=== PATIENT | male | born 1950 | race Caucasian/White ===

== ENCOUNTER → 2017-11-17 | Outpatient (CLI) | payer OTHER ==
[~2017-11-17] MED LIST: ASPIRIN325 PO; BACTRIM DS TAB1 EACH PO; CARVEDILOL25 MG PO; CEFAZOLIN2 GM/1001 IV; CLONIDINE HCL0.3 M3 PO; CLONIDINE0.1 PO; COLACE 100 MG100 MG PO; COZAAR 50 MG TA50 M2 PO; COZAAR100 MG PO; DOXYCYCLINE 10100 MG PO; EPOGEN2000 UNIT/ IJ; EXFORGE HCT 101 EAC2 PO; FLAGYL500 MG PO; FLOMAX0.4 MG PO; GABAPENTIN 100100 MG PO; GLIPIZIDE ER5 MG PO; HUMALOG100 UNIT/1 SUBQ; HUMULIN R100 UNIT/M SUBQ; HYDROCODONE-AP1 EAC6 PO; KEFLEX250 MG PO; KEFLEX500 M1 PO; LANTUS SC; LASIX 40 MG TAB40 M2 PO; LEVEMIR SUBQ; LIPITOR10 MG PO; NEPHRO-VITE RX1 TA1 PO; NEURONTIN 300300 M1 PO; NOVOLIN N100 UNIT/3 SUBQ; NOVOLOG100 UNIT/1 SUBQ; PHOSLO667 MG PO; PLAVIX 75 MG TA75 M1 PO; PROZAC10 MG PO; RENAL CAPS SOFTG1 MG PO; TRAMADOL 50 MG50 MG PO; VANCO1GM HEMODIALYS
== END ==
LOC: M.WC 01:47
DX: T87.89 Other complications of amputation stump (principal); I70.234 Atherosclerosis of native arteries of right leg with ulceration of heel and midfoot; E11.621 Type 2 diabetes mellitus with foot ulcer; L97.411 Non-pressure chronic ulcer of right heel and midfoot limited to breakdown of skin; E11.22 Type 2 diabetes mellitus with diabetic chronic kidney disease; N18.6 End stage renal disease; Z99.2 Dependence on renal dialysis; I50.9 Heart failure, unspecified; Z89.512 Acquired absence of left leg below knee; Z87.891 Personal history of nicotine dependence; Y83.5 Amputation of limb(s) as the cause of abnormal reaction of the patient, or of later complication, without mention of misadventure at the time of the procedure

== ENCOUNTER → 2017-11-24 | Outpatient (CLI) | payer OTHER | LOC: M.WC 02:39 | DX: T87.89 Other complications of amputation stump (principal); E11.621 Type 2 diabetes mellitus with foot ulcer; I70.234 Atherosclerosis of native arteries of right leg with ulceration of heel and midfoot; L97.411 Non-pressure chronic ulcer of right heel and midfoot limited to breakdown of skin; E11.22 Type 2 diabetes mellitus with diabetic chronic kidney disease; N18.6 End stage renal disease; Z99.2 Dependence on renal dialysis; I50.9 Heart failure, unspecified; Z87.891 Personal history of nicotine dependence; Y83.5 Amputation of limb(s) as the cause of abnormal reaction of the patient, or of later complication, without mention of misadventure at the time of the procedure ==

== ENCOUNTER → 2017-12-01 | Outpatient (CLI) | payer OTHER | LOC: M.WC 01:22 | DX: T87.89 Other complications of amputation stump (principal); I70.234 Atherosclerosis of native arteries of right leg with ulceration of heel and midfoot; E11.621 Type 2 diabetes mellitus with foot ulcer; L97.411 Non-pressure chronic ulcer of right heel and midfoot limited to breakdown of skin; E11.22 Type 2 diabetes mellitus with diabetic chronic kidney disease; N18.6 End stage renal disease; Z99.2 Dependence on renal dialysis; I50.9 Heart failure, unspecified; Z87.891 Personal history of nicotine dependence; Y83.5 Amputation of limb(s) as the cause of abnormal reaction of the patient, or of later complication, without mention of misadventure at the time of the procedure ==

== ENCOUNTER → 2017-12-08 | Outpatient (CLI) | payer OTHER | LOC: M.WC 01:13 | DX: T87.89 Other complications of amputation stump (principal); E11.621 Type 2 diabetes mellitus with foot ulcer; L97.411 Non-pressure chronic ulcer of right heel and midfoot limited to breakdown of skin; I50.9 Heart failure, unspecified; Z87.891 Personal history of nicotine dependence; Y83.5 Amputation of limb(s) as the cause of abnormal reaction of the patient, or of later complication, without mention of misadventure at the time of the procedure ==

== ENCOUNTER → 2017-12-15 | Outpatient (CLI) | payer OTHER | LOC: M.WC 01:22 | DX: T87.89 Other complications of amputation stump (principal); E11.621 Type 2 diabetes mellitus with foot ulcer; I70.234 Atherosclerosis of native arteries of right leg with ulceration of heel and midfoot; L97.411 Non-pressure chronic ulcer of right heel and midfoot limited to breakdown of skin; E11.22 Type 2 diabetes mellitus with diabetic chronic kidney disease; N18.6 End stage renal disease; I50.9 Heart failure, unspecified; Z99.2 Dependence on renal dialysis; Z89.512 Acquired absence of left leg below knee; Z87.891 Personal history of nicotine dependence; Y83.5 Amputation of limb(s) as the cause of abnormal reaction of the patient, or of later complication, without mention of misadventure at the time of the procedure ==

== ENCOUNTER → 2017-12-24 | Outpatient (CLI) | payer OTHER | LOC: M.WC 01:30 | DX: T87.89 Other complications of amputation stump (principal); I70.234 Atherosclerosis of native arteries of right leg with ulceration of heel and midfoot; E11.621 Type 2 diabetes mellitus with foot ulcer; L97.411 Non-pressure chronic ulcer of right heel and midfoot limited to breakdown of skin; E11.22 Type 2 diabetes mellitus with diabetic chronic kidney disease; N18.6 End stage renal disease; Z99.2 Dependence on renal dialysis; Z87.891 Personal history of nicotine dependence; Y83.5 Amputation of limb(s) as the cause of abnormal reaction of the patient, or of later complication, without mention of misadventure at the time of the procedure ==

== ENCOUNTER → 2017-12-29 | Outpatient (CLI) | payer OTHER | LOC: M.WC 12-22 08:30 | DX: T87.89 Other complications of amputation stump (principal); E11.621 Type 2 diabetes mellitus with foot ulcer; L97.411 Non-pressure chronic ulcer of right heel and midfoot limited to breakdown of skin; I70.234 Atherosclerosis of native arteries of right leg with ulceration of heel and midfoot; I50.9 Heart failure, unspecified; E11.22 Type 2 diabetes mellitus with diabetic chronic kidney disease; N18.6 End stage renal disease; Z99.2 Dependence on renal dialysis; Z87.891 Personal history of nicotine dependence; Z89.512 Acquired absence of left leg below knee; Y83.5 Amputation of limb(s) as the cause of abnormal reaction of the patient, or of later complication, without mention of misadventure at the time of the procedure ==

== ENCOUNTER → 2018-01-05 | Outpatient (CLI) | payer OTHER | LOC: M.WC 01:35 | DX: T87.89 Other complications of amputation stump (principal); E11.621 Type 2 diabetes mellitus with foot ulcer; I70.234 Atherosclerosis of native arteries of right leg with ulceration of heel and midfoot; L97.411 Non-pressure chronic ulcer of right heel and midfoot limited to breakdown of skin; E11.22 Type 2 diabetes mellitus with diabetic chronic kidney disease; N18.6 End stage renal disease; I50.9 Heart failure, unspecified; L84 Corns and callosities; Z99.2 Dependence on renal dialysis; Z89.512 Acquired absence of left leg below knee; Z87.891 Personal history of nicotine dependence; Y83.5 Amputation of limb(s) as the cause of abnormal reaction of the patient, or of later complication, without mention of misadventure at the time of the procedure ==

== ENCOUNTER → 2018-01-19 | Outpatient (CLI) | payer OTHER | LOC: M.WC 04:46 | DX: T87.89 Other complications of amputation stump (principal); E11.621 Type 2 diabetes mellitus with foot ulcer; L97.411 Non-pressure chronic ulcer of right heel and midfoot limited to breakdown of skin; I70.234 Atherosclerosis of native arteries of right leg with ulceration of heel and midfoot; E11.22 Type 2 diabetes mellitus with diabetic chronic kidney disease; N18.6 End stage renal disease; I50.9 Heart failure, unspecified; Z99.2 Dependence on renal dialysis; Z87.891 Personal history of nicotine dependence; Y83.5 Amputation of limb(s) as the cause of abnormal reaction of the patient, or of later complication, without mention of misadventure at the time of the procedure ==

== ENCOUNTER → 2018-02-02 | Outpatient (CLI) | payer OTHER | LOC: M.WC 01-26 01:54 | DX: T87.89 Other complications of amputation stump (principal); E11.621 Type 2 diabetes mellitus with foot ulcer; L97.411 Non-pressure chronic ulcer of right heel and midfoot limited to breakdown of skin; I70.234 Atherosclerosis of native arteries of right leg with ulceration of heel and midfoot; E11.22 Type 2 diabetes mellitus with diabetic chronic kidney disease; N18.6 End stage renal disease; Z99.2 Dependence on renal dialysis; I50.9 Heart failure, unspecified; Z87.891 Personal history of nicotine dependence; Y83.5 Amputation of limb(s) as the cause of abnormal reaction of the patient, or of later complication, without mention of misadventure at the time of the procedure ==

== ENCOUNTER → 2018-02-09 | Outpatient (CLI) | payer OTHER | LOC: M.WC 02:22 | DX: E11.621 Type 2 diabetes mellitus with foot ulcer (principal); I70.234 Atherosclerosis of native arteries of right leg with ulceration of heel and midfoot; L97.411 Non-pressure chronic ulcer of right heel and midfoot limited to breakdown of skin; E11.22 Type 2 diabetes mellitus with diabetic chronic kidney disease; N18.6 End stage renal disease; Z99.2 Dependence on renal dialysis; I50.9 Heart failure, unspecified; Z89.512 Acquired absence of left leg below knee; Z87.891 Personal history of nicotine dependence ==

== ENCOUNTER → 2018-02-16 | Outpatient (CLI) | payer OTHER | LOC: M.WC 00:37 | DX: E11.621 Type 2 diabetes mellitus with foot ulcer (principal); L97.411 Non-pressure chronic ulcer of right heel and midfoot limited to breakdown of skin; I70.234 Atherosclerosis of native arteries of right leg with ulceration of heel and midfoot; E11.22 Type 2 diabetes mellitus with diabetic chronic kidney disease; N18.6 End stage renal disease; Z99.2 Dependence on renal dialysis; Z89.512 Acquired absence of left leg below knee; I50.9 Heart failure, unspecified; Z87.891 Personal history of nicotine dependence ==

== ENCOUNTER → 2018-02-23 | Outpatient (CLI) | payer OTHER | LOC: M.WC 02:46 | DX: E11.621 Type 2 diabetes mellitus with foot ulcer (principal); I70.234 Atherosclerosis of native arteries of right leg with ulceration of heel and midfoot; L97.411 Non-pressure chronic ulcer of right heel and midfoot limited to breakdown of skin; E11.22 Type 2 diabetes mellitus with diabetic chronic kidney disease; N18.6 End stage renal disease; Z99.2 Dependence on renal dialysis; I50.9 Heart failure, unspecified; Z89.512 Acquired absence of left leg below knee; Z87.891 Personal history of nicotine dependence ==

== ENCOUNTER → 2018-03-02 | Outpatient (CLI) | payer OTHER | LOC: M.WC 03:03 | DX: E11.621 Type 2 diabetes mellitus with foot ulcer (principal); L97.411 Non-pressure chronic ulcer of right heel and midfoot limited to breakdown of skin; I70.234 Atherosclerosis of native arteries of right leg with ulceration of heel and midfoot; E11.22 Type 2 diabetes mellitus with diabetic chronic kidney disease; N18.6 End stage renal disease; I50.9 Heart failure, unspecified; Z87.891 Personal history of nicotine dependence; Z89.512 Acquired absence of left leg below knee; Z99.2 Dependence on renal dialysis ==

== ENCOUNTER → 2018-03-09 | Outpatient (CLI) | payer OTHER | LOC: M.WC 04:25 | DX: E11.621 Type 2 diabetes mellitus with foot ulcer (principal); I70.234 Atherosclerosis of native arteries of right leg with ulceration of heel and midfoot; L97.411 Non-pressure chronic ulcer of right heel and midfoot limited to breakdown of skin; E11.22 Type 2 diabetes mellitus with diabetic chronic kidney disease; N18.6 End stage renal disease; I50.9 Heart failure, unspecified; Z87.891 Personal history of nicotine dependence; Z99.2 Dependence on renal dialysis; Z89.512 Acquired absence of left leg below knee ==

== ENCOUNTER → 2018-03-16 | Outpatient (CLI) | payer OTHER | LOC: M.WC 02:48 | DX: E11.621 Type 2 diabetes mellitus with foot ulcer (principal); I70.234 Atherosclerosis of native arteries of right leg with ulceration of heel and midfoot; L97.411 Non-pressure chronic ulcer of right heel and midfoot limited to breakdown of skin; E11.22 Type 2 diabetes mellitus with diabetic chronic kidney disease; N18.6 End stage renal disease; I50.9 Heart failure, unspecified; Z87.891 Personal history of nicotine dependence; Z99.2 Dependence on renal dialysis; Z89.512 Acquired absence of left leg below knee ==

== ENCOUNTER → 2018-04-13 | Outpatient (CLI) | payer OTHER | LOC: M.WC 03-23 08:30 | DX: I70.234 Atherosclerosis of native arteries of right leg with ulceration of heel and midfoot (principal); E11.621 Type 2 diabetes mellitus with foot ulcer; L97.411 Non-pressure chronic ulcer of right heel and midfoot limited to breakdown of skin; E11.22 Type 2 diabetes mellitus with diabetic chronic kidney disease; N18.6 End stage renal disease; I50.9 Heart failure, unspecified; Z89.512 Acquired absence of left leg below knee; Z87.891 Personal history of nicotine dependence; Z99.2 Dependence on renal dialysis ==

== ENCOUNTER → 2018-04-20 | Outpatient (CLI) | payer OTHER | LOC: M.WC 03:32 | DX: E11.621 Type 2 diabetes mellitus with foot ulcer (principal); I70.234 Atherosclerosis of native arteries of right leg with ulceration of heel and midfoot; L97.421 Non-pressure chronic ulcer of left heel and midfoot limited to breakdown of skin; L97.411 Non-pressure chronic ulcer of right heel and midfoot limited to breakdown of skin; E11.22 Type 2 diabetes mellitus with diabetic chronic kidney disease; N18.6 End stage renal disease; I50.9 Heart failure, unspecified; Z99.2 Dependence on renal dialysis; Z87.891 Personal history of nicotine dependence; Z89.512 Acquired absence of left leg below knee ==

== ENCOUNTER → 2018-04-27 | Outpatient (CLI) | payer OTHER | LOC: M.WC 00:36 | DX: E11.621 Type 2 diabetes mellitus with foot ulcer (principal); I70.234 Atherosclerosis of native arteries of right leg with ulceration of heel and midfoot; L97.411 Non-pressure chronic ulcer of right heel and midfoot limited to breakdown of skin; E11.22 Type 2 diabetes mellitus with diabetic chronic kidney disease; I50.9 Heart failure, unspecified; N18.6 End stage renal disease; Z87.891 Personal history of nicotine dependence; Z99.2 Dependence on renal dialysis; Z89.512 Acquired absence of left leg below knee ==

== ENCOUNTER → 2018-05-04 | Day surgery (SDC) | payer OTHER ==
[2018-05-04 11:03] LABS: ABSOLUTE BASOPHILS 0.1 thou/uL (0.0-0.2); ABSOLUTE EOSINOPHILS 0.2 thou/uL (0.0-0.7); ABSOLUTE LYMPHOCYTES 1.2 thou/uL (0.8-5.3); ABSOLUTE MONOCYTES 0.6 thou/uL (0.0-1.2); ABSOLUTE NEUTROPHILS 4.7 thou/uL (1.6-8.1); BASOPHILS 0.9 %; EOSINOPHILS 2.4 %; HEMATOCRIT 33.5 % (42.0-52.0); HEMOGLOBIN 11.2 gm/dL (14.0-18.0); LYMPHOCYTES 17.7 %; MCH 33.1 pg (26.0-34.0); MCHC 33.6 g/dL (28.0-37.0); MCV 98.8 fL (80.0-100.0); MONOCYTES 9.1 %; MPV 7.6 fl. (7.2-11.1); NUCLEATED RBCS 0 /100WBC; PLATELET COUNT* 281 thou/uL (150-400); POLYS 69.9 %; RBC 3.39 mil/uL (4.50-6.00); RDW-CV 15.2 % (10.5-14.5); WBC 6.7 thou/uL (4.0-11.0)
[2018-05-04 11:13] LABS: CALCIUM 9.2 mg/dL (8.5-10.1); CREATININE 6.8 mg/dL (0.6-1.3); POTASSIUM 4.9 mmol/L (3.5-5.1)
[2018-05-04 11:18] LABS: ALBUMIN 3.7 g/dL (3.4-5.0); TOTAL BILIRUBIN 0.5 mg/dL (<0.1-1.0); TOTAL PROTEIN 7.1 g/dL (6.4-8.2)
--- NOTE | 2018-05-04 15:04 | EKG ---
[place] [address] ELECTROCARDIOGRAM REPORT Name: TERRELL IGNACIO Room: [facility]#: [id number] Admission: 05/04/18 Attend Phys: Camille Lindsey Discharge: Date of : 46 Report #: [id number] THIS REPORT FOR: //name// [facility] Test Date: 2018-05-04 Test Time: 10:58:59 Pat Name: TERRELL IGNACIO Department: Room: Gender: M Service Desk Associate: : 1950 Requested By: Chon Goins Order Number: [id number] Scott MD: Kit Lange Measurements Intervals [place] Rate: 62 P: 8 OK: 229 QRS: -76 QRSD: 146 T: 97 QT: 497 QTc: 505 Interpretive Statements Sinus rhythm Prolonged OK interval RBBB and LAFB Left ventricular hypertrophy Baseline wander in lead(s) V1 Compared to ECG 04/19/2017 09:59:20 First degree AV block now present Left ventricular hypertrophy now present Electronically Signed On 05-04-2018 15:04:34 CDT by Kit Lange [email or web address] <ELECTRONICALLY SIGNED> By: Kit Lange MD, [facility] 05/04/18 1504 1058 1058 Kit Lange MD, [facility] /EPI
--- NOTE | 2018-05-05 18:23 | OP ---
[facility] [address] [place] [address] OPERATIVE REPORT Name: BUCKROBERTOTERRELL Heri Room: [facility]#: [id number] Admission: 05/04/18 Attend Phys: Camille Lindsey Discharge: Date of : 46 Report #: [id number] THIS REPORT FOR: //name// CC: Chon Goins [facility] DATE OF SERVICE: 05/04/2018 PREOPERATIVE DIAGNOSES: Heel necrosis, right lower extremity, grade 3 diabetic foot ulcer, peripheral vascular disease. POSTOPERATIVE DIAGNOSES: Heel necrosis, right lower extremity, grade 3 diabetic foot ulcer, peripheral vascular disease. SURGEON: Chon Goins DO. RESISTANCE BRAZER: None. PROCEDURES: 1. Excisional debridement of tendon and fascia, right lower extremity heel ulcer 2 x 2 x 1 cm, 24 cm2. 2. Application of Integra skin substitute 5 x 5 cm size, 100% utilization. 3. Application of negative pressure wound therapy with JULIETA wound VAC. ESTIMATED BLOOD LOSS: 20 mL SPECIMEN: Tendon for culture. COMPLICATIONS: None. CONDITION: Stable. DISPOSITION: Home. INDICATIONS FOR THE PROCEDURE AND CONSENT: The patient is a 67-year-old male with history of left below-knee amputation. He has a right lower extremity chronic heel ulcer, which has healed previous of the skin graft, later had re-necrosis secondary to pressure and although he has had adequate blood flow and has healed some areas, he continues to have necrosis posteriorly. A recommendation for hyperbaric therapy was made in anticipation of this therapy today. Unfortunately, his hyperbaric therapy has been denied by the insurance company despite good indications for chronic nonhealing ulcer of Andujar grade 3 diabetic ulcer for many weeks and months. The risks and benefits of Integra and negative pressure wound therapy were discussed with the patient including the need for more extensive debridement than anticipated [place] [address] OPERATIVE REPORT Name: MATEUSTERRELL Heri Room: [facility]#: [id number] Admission: 05/04/18 Attend Phys: Camille Lindsey Discharge: Date of : 46 Report #: [id number] despite therapy. The patient wished to proceed, was consented and scheduled. PROCEDURE IN DETAIL: After timeout was performed, the patient was placed in supine position with sterile prep and drape of the right lower extremity. Metzenbaum scissors and forceps were used to excise necrosed tendon, skin and all devitalized tissue in a 2 x 2 x 1 cm area. The rest of the wound appeared to have granulation tissue and slough was wiped away from the wound in preparation of the graft. The graft was then cut to fit and sutured in place with 4-0 Monocryl suture. There was some tunneling proximally where the Achilles tendon was excised. A portion of the Integra graft was from silicone layer and packed within this tunnel. After the Integra was applied, the Adaptic was applied over the top with silicone layer to separate it from the JULIETA device, which was then applied as a bolster. A pressure offloading boot was applied in recovery and the patient was transferred to recovery in stable condition. Thank you for allowing me to participate in this patient's care. Please do not hesitate to call should you have further questions or concerns. <ELECTRONICALLY SIGNED> By: Chon Goins DO 05/05/18 1823 1852 1924Chon Goins DO /nt
== END | disposition home or self-care (01) ==
LOC: M.SUR 10:35
PROVIDERS: Surgery
DX: E11.621 Type 2 diabetes mellitus with foot ulcer (principal); I70.261 Atherosclerosis of native arteries of extremities with gangrene, right leg; L97.413 Non-pressure chronic ulcer of right heel and midfoot with necrosis of muscle; I10 Essential (primary) hypertension; Z98.890 Other specified postprocedural states; Z79.899 Other long term (current) drug therapy

== ENCOUNTER → 2018-05-11 | Outpatient (CLI) | payer OTHER | LOC: M.WC 05:06 | DX: E11.621 Type 2 diabetes mellitus with foot ulcer (principal); I70.234 Atherosclerosis of native arteries of right leg with ulceration of heel and midfoot; L97.411 Non-pressure chronic ulcer of right heel and midfoot limited to breakdown of skin; I50.9 Heart failure, unspecified; N18.6 End stage renal disease; Z99.2 Dependence on renal dialysis; Z89.512 Acquired absence of left leg below knee; Z87.891 Personal history of nicotine dependence ==

== ENCOUNTER → 2018-05-17 | Outpatient (CLI) | payer OTHER | LOC: M.WC 04:59 | DX: E11.621 Type 2 diabetes mellitus with foot ulcer (principal); I70.234 Atherosclerosis of native arteries of right leg with ulceration of heel and midfoot; L97.411 Non-pressure chronic ulcer of right heel and midfoot limited to breakdown of skin; N18.6 End stage renal disease; I50.9 Heart failure, unspecified; Z87.891 Personal history of nicotine dependence; Z99.2 Dependence on renal dialysis; Z89.512 Acquired absence of left leg below knee ==

== ENCOUNTER → 2018-05-25 | Outpatient (CLI) | payer OTHER ==
--- NOTE | 2018-05-25 17:27 | 2DMMODE ---
[place] [address] 2 D/M-MODE ECHOCARDIOGRAM Name: TERRELL IGNACIO Room: [facility]#: [id number] Admission: 05/25/18 Attend Phys: Chon Goins Discharge: Date of : 46 Date of Service: 05/25/18 1727 Report #: [id number] THIS REPORT FOR: //name// APPROVED REPORT Study performed: 05/25/2018 09:58:37 EXAM: Comprehensive 2D, Doppler, and color-flow Echocardiogram Patient Location: Out-Patient Status: routine BSA: 1.90 HR: 67 bpm BP: 124/50 mmHg Other Information Study Quality: Good Indications Hypertension/HDD 2D Dimensions LVEF(%): 46.81 (>50%) IVSd: 13.92 (7-11mm) LVOT Diam: 20.30 (18-24mm) LVDd: 36.60 mm PWd: 12.84 (7-11mm) Ascending Ao: 31.81 (22-36mm) LVDs: 28.22 (25-40mm) Aortic Root: 32.83 mm Catherine's LVEF: 46.81 % Volumes Left Atrial Volume (Systole) LA ESV Index: 18.60 mL/m2 Aortic Valve AoV Peak Graeme.: 1.94 m/s AO Peak Gr.: 15.01 mmHg LVOT Max P.77 mmHg AO Mean Gr.: 8.71 mmHg LVOT Mean P.01 mmHg LVOT Max V: 0.97 m/s AO V2 VTI: 47.34 cm LVOT Mean V: 0.66 m/s WILI (VTI): 1.80 cm2 LVOT V1 VTI: 26.30 cm Mitral Valve E/A Ratio: 1.00 MV Decel. Time: 238.27 [place] [address] 2 D/M-MODE ECHOCARDIOGRAM Name: TERRELL IGNACIO Room: [facility]#: [id number] Admission: 05/25/18 Attend Phys: Chon Goins Discharge: Date of : 46 Date of Service: 05/25/18 1727 Report #: [id number] MV E Max Graeme.: 1.09 m/s MV PHT: 69.10 ms MVA (PHT): 3.18 cm2 TDI E/Lateral E': 15.57 E/Medial E': 18.17 Medial E' Graeme.: 0.06 m/s Lateral E' Graeme.: 0.07 m/s Pulmonary Valve PV Peak Graeme.: 1.07 m/s PV Peak Gr.: 4.57 mmHg Tricuspid Valve RAP Estimate: 5.00 mmHg TR Peak Gr.: 27.71 mmHg RVSP: 32.71 mmHg PA Pressure: 32.71 mmHg Left Ventricle The left ventricle is normal size. There is normal LV segmental wall motion. Mild concentric left ventricular hypertrophy. Left ventricular systolic function is normal. The left ventricular ejection fraction is within the normal range. LVEF is 55-60%. Grade I - abnormal relaxation pattern. Right Ventricle The right ventricle is normal size. The right ventricular systolic function is normal. Atria The left atrium size is normal. The right atrium size is normal. Aortic Valve Aortic valve is mildly calcified. No aortic regurgitation is present. No hemodynamically significant valvular aortic stenosis. Mitral Valve There is mild mitral annular calcification. Mild mitral regurgitation. No evidence of mitral valve stenosis. Tricuspid Valve The tricuspid valve is normal in structure. Mild tricuspid regurgitation. Pulmonic Valve The pulmonary valve is normal in structure. There [place] [address] 2 D/M-MODE ECHOCARDIOGRAM Name: TERRELL IGNACIO Room: [facility]#: [id number] Admission: 05/25/18 Attend Phys: Chon Goins Discharge: Date of : 46 Date of Service: 05/25/18 1727 Report #: [id number] valvular regurgitation. Great Vessels The aortic root is normal in size. IVC is normal in size and collapses with >50% inspiration Pericardium There is no pericardial effusion. <Conclusion> The left ventricle is normal size. Mild concentric left ventricular hypertrophy. Left ventricular systolic function is normal. The left ventricular ejection fraction is within the normal range. LVEF is 55-60%. Grade I - abnormal relaxation pattern. The right ventricle is normal size. The left atrium size is normal. Aortic valve is mildly calcified. No aortic regurgitation is present. No hemodynamically significant valvular aortic stenosis. There is mild mitral annular calcification. Mild mitral regurgitation. No evidence of mitral valve stenosis. The tricuspid valve is normal in structure. Mild tricuspid regurgitation. IVC is normal in size and collapses with >50% inspiration There is no pericardial effusion. There is normal LV segmental wall motion. <ELECTRONICALLY SIGNED> By: Kit Lange MD, FACC 05/25/181726 26 26 Kit Lange MD, FACC /INF
== END ==
LOC: M.WC 04:36
DX: E11.621 Type 2 diabetes mellitus with foot ulcer (principal); I70.234 Atherosclerosis of native arteries of right leg with ulceration of heel and midfoot; L97.411 Non-pressure chronic ulcer of right heel and midfoot limited to breakdown of skin; E11.22 Type 2 diabetes mellitus with diabetic chronic kidney disease; N18.6 End stage renal disease; I50.9 Heart failure, unspecified; Z87.891 Personal history of nicotine dependence; Z99.2 Dependence on renal dialysis

== ENCOUNTER → 2018-06-01 | Outpatient (CLI) | payer OTHER | LOC: M.WC 05:09 | DX: E11.621 Type 2 diabetes mellitus with foot ulcer (principal); I70.234 Atherosclerosis of native arteries of right leg with ulceration of heel and midfoot; L97.411 Non-pressure chronic ulcer of right heel and midfoot limited to breakdown of skin; N18.6 End stage renal disease; I50.9 Heart failure, unspecified; Z99.2 Dependence on renal dialysis; Z87.891 Personal history of nicotine dependence ==

== ENCOUNTER → 2018-06-08 | Outpatient (CLI) | payer OTHER | LOC: M.WC 04:45 | DX: E11.621 Type 2 diabetes mellitus with foot ulcer (principal); I70.234 Atherosclerosis of native arteries of right leg with ulceration of heel and midfoot; L97.411 Non-pressure chronic ulcer of right heel and midfoot limited to breakdown of skin; N18.6 End stage renal disease; I50.9 Heart failure, unspecified; Z87.891 Personal history of nicotine dependence; Z99.2 Dependence on renal dialysis; Z89.512 Acquired absence of left leg below knee ==

== ENCOUNTER → 2018-06-13 | Outpatient (CLI) | payer OTHER | LOC: M.WC 01:13 | DX: E11.621 Type 2 diabetes mellitus with foot ulcer (principal); I70.234 Atherosclerosis of native arteries of right leg with ulceration of heel and midfoot; L97.411 Non-pressure chronic ulcer of right heel and midfoot limited to breakdown of skin; E11.22 Type 2 diabetes mellitus with diabetic chronic kidney disease; N18.6 End stage renal disease; I50.9 Heart failure, unspecified; Z89.512 Acquired absence of left leg below knee; Z99.2 Dependence on renal dialysis; Z87.891 Personal history of nicotine dependence ==

== ENCOUNTER → 2018-06-15 | Outpatient (CLI) | payer OTHER | LOC: M.WC 02:56 | DX: E11.621 Type 2 diabetes mellitus with foot ulcer (principal); I70.234 Atherosclerosis of native arteries of right leg with ulceration of heel and midfoot; L97.411 Non-pressure chronic ulcer of right heel and midfoot limited to breakdown of skin; E11.22 Type 2 diabetes mellitus with diabetic chronic kidney disease; N18.6 End stage renal disease; I50.9 Heart failure, unspecified; Z99.2 Dependence on renal dialysis; Z87.891 Personal history of nicotine dependence; Z89.512 Acquired absence of left leg below knee ==

== ENCOUNTER → 2018-06-20 | Outpatient (CLI) | payer OTHER | LOC: M.WC 00:55 | DX: E11.621 Type 2 diabetes mellitus with foot ulcer (principal); I70.234 Atherosclerosis of native arteries of right leg with ulceration of heel and midfoot; L97.411 Non-pressure chronic ulcer of right heel and midfoot limited to breakdown of skin; I50.9 Heart failure, unspecified; Z99.2 Dependence on renal dialysis; Z87.891 Personal history of nicotine dependence; Z89.512 Acquired absence of left leg below knee ==

== ENCOUNTER → 2018-06-22 | Outpatient (CLI) | payer OTHER | LOC: M.WC 04:06 | DX: E11.621 Type 2 diabetes mellitus with foot ulcer (principal); I70.234 Atherosclerosis of native arteries of right leg with ulceration of heel and midfoot; L97.411 Non-pressure chronic ulcer of right heel and midfoot limited to breakdown of skin; E11.22 Type 2 diabetes mellitus with diabetic chronic kidney disease; N18.6 End stage renal disease; I50.9 Heart failure, unspecified; Z99.2 Dependence on renal dialysis; Z87.891 Personal history of nicotine dependence; Z89.512 Acquired absence of left leg below knee ==

== ENCOUNTER → 2018-06-24 | Outpatient (CLI) | payer OTHER | LOC: M.WC 01:21 | DX: E11.621 Type 2 diabetes mellitus with foot ulcer (principal); I70.234 Atherosclerosis of native arteries of right leg with ulceration of heel and midfoot; L97.412 Non-pressure chronic ulcer of right heel and midfoot with fat layer exposed; E11.22 Type 2 diabetes mellitus with diabetic chronic kidney disease; N18.6 End stage renal disease; I50.9 Heart failure, unspecified; Z99.2 Dependence on renal dialysis; Z89.512 Acquired absence of left leg below knee; Z87.891 Personal history of nicotine dependence ==

== ENCOUNTER → 2018-06-29 | Outpatient (CLI) | payer OTHER ==
[2018-06-30 03:12] LABS: GLYCOHEMOGLOBIN (HGB A1C) 5.5 % (4.8-5.6)
== END ==
LOC: M.WC 03:19
PROVIDERS: Surgery
DX: T86.828 Other complications of skin graft (allograft) (autograft) (principal); E11.621 Type 2 diabetes mellitus with foot ulcer; L97.413 Non-pressure chronic ulcer of right heel and midfoot with necrosis of muscle; I70.234 Atherosclerosis of native arteries of right leg with ulceration of heel and midfoot; E11.22 Type 2 diabetes mellitus with diabetic chronic kidney disease; I13.0 Hypertensive heart and chronic kidney disease with heart failure and stage 1 through stage 4 chronic kidney disease, or unspecified chronic kidney disease; I50.9 Heart failure, unspecified; N18.6 End stage renal disease; Z99.2 Dependence on renal dialysis; Z89.512 Acquired absence of left leg below knee; Z87.891 Personal history of nicotine dependence; Y83.2 Surgical operation with anastomosis, bypass or graft as the cause of abnormal reaction of the patient, or of later complication, without mention of misadventure at the time of the procedure

== ENCOUNTER → 2018-07-01 | Outpatient (CLI) | payer OTHER | LOC: M.ULTRA 12:48 | DX: M25.879 Other specified joint disorders, unspecified ankle and foot (principal); E11.621 Type 2 diabetes mellitus with foot ulcer; I10 Essential (primary) hypertension; Z89.512 Acquired absence of left leg below knee ==

== ENCOUNTER → 2018-07-06 | Outpatient (CLI) | payer OTHER | LOC: M.WC 01:33 | DX: E11.621 Type 2 diabetes mellitus with foot ulcer (principal); L97.413 Non-pressure chronic ulcer of right heel and midfoot with necrosis of muscle; I70.234 Atherosclerosis of native arteries of right leg with ulceration of heel and midfoot; E11.22 Type 2 diabetes mellitus with diabetic chronic kidney disease; N18.6 End stage renal disease; I50.9 Heart failure, unspecified; Z89.512 Acquired absence of left leg below knee; Z99.2 Dependence on renal dialysis; Z87.891 Personal history of nicotine dependence ==

== ENCOUNTER 2018-07-08 15:20 | Emergency (ER) | payer OTHER ==
[~2018-07-08] VITALS: Ht 175.3 cm; Wt 79.4 kg
[~2018-07-08 15:20] MED LIST changes: -BACTRIM DS TAB1 EACH PO; -KEFLEX500 M1 PO
[2018-07-08 16:11] LABS: ABSOLUTE EOSINOPHILS 0.2 thou/uL (0.0-0.7); ABSOLUTE LYMPHOCYTES 0.9 thou/uL (0.8-5.3); ABSOLUTE MONOCYTES 0.7 thou/uL (0.0-1.2); ABSOLUTE NEUTROPHILS 5.2 thou/uL (1.6-8.1); BASOPHILS 0.5 %; EOSINOPHILS 2.3 %; HEMATOCRIT 29.6 % (42.0-52.0); HEMOGLOBIN 9.9 gm/dL (14.0-18.0); LYMPHOCYTES 12.7 %; MCH 33.3 pg (26.0-34.0); MCHC 33.6 g/dL (28.0-37.0); MCV 99.3 fL (80.0-100.0); MONOCYTES 10.1 %; MPV 7.4 fl. (7.2-11.1); NUCLEATED RBCS 0 /100WBC; PLATELET COUNT* 328 thou/uL (150-400); POLYS 74.4 %; RBC 2.98 mil/uL (4.50-6.00); RDW-CV 15.8 % (10.5-14.5)
[2018-07-08 16:26] LABS: CREATININE 7.1 mg/dL (0.6-1.3); POTASSIUM 4.4 mmol/L (3.5-5.1)
[2018-07-08 16:29] LABS: APTT 26.4 Seconds (25.0-31.3); INR 1.2; PROTIME 11.4 Seconds (9.20-11.50)
[2018-07-08 16:35] LABS: ALBUMIN 3.3 g/dL (3.4-5.0); TOTAL BILIRUBIN 0.4 mg/dL (<0.1-1.0); TOTAL PROTEIN 6.9 g/dL (6.4-8.2)
[2018-07-08] MEDS ORDERED: BACTRIM DS TAB1 EACH PO (16:40)
[2018-07-08] MEDS ORDERED: KEFLEX500 M1 PO (16:40)
[2018-07-08 17:03] VITALS: BP 177/60
== END 2018-07-08 17:04 | disposition home or self-care (01) ==
LOC: M.ERS 15:20
PROVIDERS: Nurse Practitioner Family
DX: S91.301A Unspecified open wound, right foot, initial encounter (principal); N18.6 End stage renal disease; Z87.891 Personal history of nicotine dependence; W26.8XXA Contact with other sharp object(s), not elsewhere classified, initial encounter; Y93.89 Activity, other specified; Y92.89 Other specified places as the place of occurrence of the external cause; Y99.8 Other external cause status

== ENCOUNTER → 2018-07-11 | Outpatient (CLI) | payer OTHER ==
[~2018-07-11] MED LIST changes: +BACTRIM DS TAB1 EACH PO; +KEFLEX500 M1 PO
== END ==
LOC: M.WC 10:00
DX: E11.621 Type 2 diabetes mellitus with foot ulcer (principal); L97.411 Non-pressure chronic ulcer of right heel and midfoot limited to breakdown of skin; I70.234 Atherosclerosis of native arteries of right leg with ulceration of heel and midfoot; E11.22 Type 2 diabetes mellitus with diabetic chronic kidney disease; N18.6 End stage renal disease; I50.9 Heart failure, unspecified; Z99.2 Dependence on renal dialysis; Z89.621 Acquired absence of right hip joint; Z87.891 Personal history of nicotine dependence

== ENCOUNTER → 2018-07-13 | Outpatient (CLI) | payer OTHER | LOC: M.WC 04:33 | DX: E11.621 Type 2 diabetes mellitus with foot ulcer (principal); I70.234 Atherosclerosis of native arteries of right leg with ulceration of heel and midfoot; L97.411 Non-pressure chronic ulcer of right heel and midfoot limited to breakdown of skin; E11.22 Type 2 diabetes mellitus with diabetic chronic kidney disease; N18.6 End stage renal disease; I50.9 Heart failure, unspecified; Z99.2 Dependence on renal dialysis; Z89.512 Acquired absence of left leg below knee; Z87.891 Personal history of nicotine dependence ==

== ENCOUNTER → 2018-07-20 | Outpatient (CLI) | payer OTHER | LOC: M.WC 04:48 | DX: T86.828 Other complications of skin graft (allograft) (autograft) (principal); E11.621 Type 2 diabetes mellitus with foot ulcer; L97.413 Non-pressure chronic ulcer of right heel and midfoot with necrosis of muscle; I70.234 Atherosclerosis of native arteries of right leg with ulceration of heel and midfoot; E11.22 Type 2 diabetes mellitus with diabetic chronic kidney disease; N18.6 End stage renal disease; I50.9 Heart failure, unspecified; Z99.2 Dependence on renal dialysis; Z89.512 Acquired absence of left leg below knee; Z89.429 Acquired absence of other toe(s), unspecified side; Z87.891 Personal history of nicotine dependence; Y83.2 Surgical operation with anastomosis, bypass or graft as the cause of abnormal reaction of the patient, or of later complication, without mention of misadventure at the time of the procedure ==

== ENCOUNTER → 2018-07-27 | Outpatient (CLI) | payer OTHER | LOC: M.WC 03:03 | DX: T86.828 Other complications of skin graft (allograft) (autograft) (principal); E11.621 Type 2 diabetes mellitus with foot ulcer; L97.411 Non-pressure chronic ulcer of right heel and midfoot limited to breakdown of skin; I70.234 Atherosclerosis of native arteries of right leg with ulceration of heel and midfoot; E11.22 Type 2 diabetes mellitus with diabetic chronic kidney disease; N18.6 End stage renal disease; I50.9 Heart failure, unspecified; Z99.2 Dependence on renal dialysis; Z89.512 Acquired absence of left leg below knee; Z89.429 Acquired absence of other toe(s), unspecified side; Z87.891 Personal history of nicotine dependence; Y83.2 Surgical operation with anastomosis, bypass or graft as the cause of abnormal reaction of the patient, or of later complication, without mention of misadventure at the time of the procedure ==

== ENCOUNTER → 2018-08-03 | Outpatient (CLI) | payer OTHER | LOC: M.WC 05:17 | DX: T86.828 Other complications of skin graft (allograft) (autograft) (principal); E11.621 Type 2 diabetes mellitus with foot ulcer; L97.414 Non-pressure chronic ulcer of right heel and midfoot with necrosis of bone; I70.234 Atherosclerosis of native arteries of right leg with ulceration of heel and midfoot; E11.22 Type 2 diabetes mellitus with diabetic chronic kidney disease; I13.2 Hypertensive heart and chronic kidney disease with heart failure and with stage 5 chronic kidney disease, or end stage renal disease; N18.6 End stage renal disease; I50.9 Heart failure, unspecified; Z87.891 Personal history of nicotine dependence; Z99.2 Dependence on renal dialysis; Z89.512 Acquired absence of left leg below knee; Y83.2 Surgical operation with anastomosis, bypass or graft as the cause of abnormal reaction of the patient, or of later complication, without mention of misadventure at the time of the procedure ==

== ENCOUNTER → 2018-08-10 | Outpatient (CLI) | payer OTHER | LOC: M.WC 04:24 | DX: T86.828 Other complications of skin graft (allograft) (autograft) (principal); E11.621 Type 2 diabetes mellitus with foot ulcer; L97.416 Non-pressure chronic ulcer of right heel and midfoot with bone involvement without evidence of necrosis; I70.234 Atherosclerosis of native arteries of right leg with ulceration of heel and midfoot; E11.22 Type 2 diabetes mellitus with diabetic chronic kidney disease; N18.6 End stage renal disease; I50.9 Heart failure, unspecified; Z87.891 Personal history of nicotine dependence; Z99.2 Dependence on renal dialysis; Z95.820 Peripheral vascular angioplasty status with implants and grafts; Z89.512 Acquired absence of left leg below knee; Y83.2 Surgical operation with anastomosis, bypass or graft as the cause of abnormal reaction of the patient, or of later complication, without mention of misadventure at the time of the procedure ==

== ENCOUNTER → 2018-08-12 | Outpatient (CLI) | payer OTHER | LOC: M.MRI 16:56 | DX: E11.621 Type 2 diabetes mellitus with foot ulcer (principal); L97.419 Non-pressure chronic ulcer of right heel and midfoot with unspecified severity; E11.22 Type 2 diabetes mellitus with diabetic chronic kidney disease; I13.2 Hypertensive heart and chronic kidney disease with heart failure and with stage 5 chronic kidney disease, or end stage renal disease; N18.6 End stage renal disease; I50.9 Heart failure, unspecified; E78.5 Hyperlipidemia, unspecified; Z79.4 Long term (current) use of insulin ==

== ENCOUNTER → 2018-08-17 | Outpatient (CLI) | payer OTHER ==
--- NOTE | 2018-08-24 11:08 | PATH ---
[facility] [address] [place] [address] PATHOLOGY RPT PROCEDURE Name: TERRELL SABA Room: [facility].#: [id number] Admission: 08/17/18 Date of : 46 Discharge: Report #: [id number] Path Case #: [id number] [facility] Accession Number: [id number] . 01 Material submitted: . BONE FROM RIGHT HEEL WOUND . 01 Clinician provided ICD-10: R93.6 . 01 Clinical history: . D/T MRI positive for osteomyelitis . 02 Diagnosis: Right heel wound bone: - Acutely inflamed fibrovascular connective tissue and benign cancellous bone with osteomyelitis. . (EVONNE:at;08/18/2018) QTA/08/18/2018 . 02 Electronically signed: . Chacho Burk MD, Pathologist NPI- [id number] . 01 Gross description: . The specimen is received in formalin, labeled "Terrell Saba, right heel bone", are two irregular fragments of woodard bone measuring 0.5 x 0.2 x 0.1 measuring 0.5 x 0.2 x 0.1 cm and a 0.6 x 0.4 x 0.2 cm. The specimen is entirely submitted in A1 after decalcification. (SWS; 08/17/2018) SHS/SHS . 02 Pathologist provided ICD-10: M86.8X7 . 02 CPT . 960969, 240610 Specimen Comment: A courtesy copy of this report has been sent to Specimen Comment: [phone], . Specimen Comment: Report sent to / DR BROUSSARD Performed at: [address] [id number] MD Darci Arizmendi MD Phone: [phone] Performed at: 02 [facility] [address] [place], [place] [id number] [address] [address] PATHOLOGY RPT PROCEDURE Name: TERRELL SABA Room: [facility]#: [id number] Admission: 08/17/18 Date of : 46 Discharge: Report #: [id number] Path Case #: [id number] MD Chacho Burk MD Phone: [phone]
== END ==
LOC: M.WC 03:56
DX: T86.828 Other complications of skin graft (allograft) (autograft) (principal); E11.621 Type 2 diabetes mellitus with foot ulcer; L97.416 Non-pressure chronic ulcer of right heel and midfoot with bone involvement without evidence of necrosis; I70.234 Atherosclerosis of native arteries of right leg with ulceration of heel and midfoot; E11.22 Type 2 diabetes mellitus with diabetic chronic kidney disease; I13.2 Hypertensive heart and chronic kidney disease with heart failure and with stage 5 chronic kidney disease, or end stage renal disease; N18.6 End stage renal disease; I50.9 Heart failure, unspecified; Z87.891 Personal history of nicotine dependence; Z89.512 Acquired absence of left leg below knee; Z99.2 Dependence on renal dialysis; Y83.2 Surgical operation with anastomosis, bypass or graft as the cause of abnormal reaction of the patient, or of later complication, without mention of misadventure at the time of the procedure

== ENCOUNTER → 2018-08-24 | Outpatient (CLI) | payer OTHER | LOC: M.WC 01:33 | DX: T86.828 Other complications of skin graft (allograft) (autograft) (principal); E11.621 Type 2 diabetes mellitus with foot ulcer; L97.514 Non-pressure chronic ulcer of other part of right foot with necrosis of bone; I70.234 Atherosclerosis of native arteries of right leg with ulceration of heel and midfoot; E11.22 Type 2 diabetes mellitus with diabetic chronic kidney disease; N18.6 End stage renal disease; I50.9 Heart failure, unspecified; Z99.2 Dependence on renal dialysis; Z87.891 Personal history of nicotine dependence; Z89.512 Acquired absence of left leg below knee; Y83.2 Surgical operation with anastomosis, bypass or graft as the cause of abnormal reaction of the patient, or of later complication, without mention of misadventure at the time of the procedure ==

== ENCOUNTER → 2018-09-07 | Outpatient (CLI) | payer OTHER | LOC: M.WC 04:27 | DX: T86.828 Other complications of skin graft (allograft) (autograft) (principal); E11.621 Type 2 diabetes mellitus with foot ulcer; I70.234 Atherosclerosis of native arteries of right leg with ulceration of heel and midfoot; L97.416 Non-pressure chronic ulcer of right heel and midfoot with bone involvement without evidence of necrosis; L84 Corns and callosities; E11.22 Type 2 diabetes mellitus with diabetic chronic kidney disease; N18.6 End stage renal disease; E11.42 Type 2 diabetes mellitus with diabetic polyneuropathy; I50.9 Heart failure, unspecified; Z89.512 Acquired absence of left leg below knee; Z87.891 Personal history of nicotine dependence; Z99.2 Dependence on renal dialysis; Y83.2 Surgical operation with anastomosis, bypass or graft as the cause of abnormal reaction of the patient, or of later complication, without mention of misadventure at the time of the procedure ==

== ENCOUNTER → 2018-09-14 | Outpatient (CLI) | payer OTHER | LOC: M.WC 03:02 | DX: T86.828 Other complications of skin graft (allograft) (autograft) (principal); E11.621 Type 2 diabetes mellitus with foot ulcer; I70.234 Atherosclerosis of native arteries of right leg with ulceration of heel and midfoot; L97.416 Non-pressure chronic ulcer of right heel and midfoot with bone involvement without evidence of necrosis; L84 Corns and callosities; E11.51 Type 2 diabetes mellitus with diabetic peripheral angiopathy without gangrene; E11.69 Type 2 diabetes mellitus with other specified complication; M86.8X8 Other osteomyelitis, other site; E11.22 Type 2 diabetes mellitus with diabetic chronic kidney disease; N18.6 End stage renal disease; I50.9 Heart failure, unspecified; Z99.2 Dependence on renal dialysis; Z87.891 Personal history of nicotine dependence; Y83.2 Surgical operation with anastomosis, bypass or graft as the cause of abnormal reaction of the patient, or of later complication, without mention of misadventure at the time of the procedure ==

== ENCOUNTER → 2018-09-21 | Outpatient (CLI) | payer OTHER | LOC: M.WC 03:10 | DX: E11.621 Type 2 diabetes mellitus with foot ulcer (principal); I70.234 Atherosclerosis of native arteries of right leg with ulceration of heel and midfoot; L97.314 Non-pressure chronic ulcer of right ankle with necrosis of bone; E11.51 Type 2 diabetes mellitus with diabetic peripheral angiopathy without gangrene; E11.69 Type 2 diabetes mellitus with other specified complication; M86.8X8 Other osteomyelitis, other site; E11.22 Type 2 diabetes mellitus with diabetic chronic kidney disease; N18.6 End stage renal disease; I50.9 Heart failure, unspecified; Z99.2 Dependence on renal dialysis; Z89.512 Acquired absence of left leg below knee ==

== ENCOUNTER → 2018-10-05 | Outpatient (CLI) | payer OTHER | LOC: M.WC 09-28 13:00 | DX: E11.621 Type 2 diabetes mellitus with foot ulcer (principal); I70.234 Atherosclerosis of native arteries of right leg with ulceration of heel and midfoot; L97.412 Non-pressure chronic ulcer of right heel and midfoot with fat layer exposed; E11.22 Type 2 diabetes mellitus with diabetic chronic kidney disease; N18.6 End stage renal disease; E11.51 Type 2 diabetes mellitus with diabetic peripheral angiopathy without gangrene; E11.69 Type 2 diabetes mellitus with other specified complication; M86.8X8 Other osteomyelitis, other site; I50.9 Heart failure, unspecified; Z99.2 Dependence on renal dialysis; Z87.891 Personal history of nicotine dependence; Z95.820 Peripheral vascular angioplasty status with implants and grafts; Z89.512 Acquired absence of left leg below knee ==

== ENCOUNTER → 2018-10-12 | Outpatient (CLI) | payer OTHER | LOC: M.WC 03:18 | DX: E11.621 Type 2 diabetes mellitus with foot ulcer (principal); I70.234 Atherosclerosis of native arteries of right leg with ulceration of heel and midfoot; L97.412 Non-pressure chronic ulcer of right heel and midfoot with fat layer exposed; E11.51 Type 2 diabetes mellitus with diabetic peripheral angiopathy without gangrene; E11.22 Type 2 diabetes mellitus with diabetic chronic kidney disease; N18.6 End stage renal disease; I50.9 Heart failure, unspecified; Z99.2 Dependence on renal dialysis; Z89.512 Acquired absence of left leg below knee; Z87.891 Personal history of nicotine dependence ==

== ENCOUNTER → 2018-10-19 | Outpatient (CLI) | payer OTHER | LOC: M.WC 04:32 | DX: E11.621 Type 2 diabetes mellitus with foot ulcer (principal); I70.234 Atherosclerosis of native arteries of right leg with ulceration of heel and midfoot; L97.412 Non-pressure chronic ulcer of right heel and midfoot with fat layer exposed; L84 Corns and callosities; E11.51 Type 2 diabetes mellitus with diabetic peripheral angiopathy without gangrene; E11.22 Type 2 diabetes mellitus with diabetic chronic kidney disease; N18.6 End stage renal disease; E11.69 Type 2 diabetes mellitus with other specified complication; M86.68 Other chronic osteomyelitis, other site; I50.9 Heart failure, unspecified; Z99.2 Dependence on renal dialysis; Z95.820 Peripheral vascular angioplasty status with implants and grafts; Z89.512 Acquired absence of left leg below knee; Z87.891 Personal history of nicotine dependence ==

== ENCOUNTER → 2018-10-26 | Outpatient (CLI) | payer OTHER | LOC: M.WC 02:51 | DX: E11.621 Type 2 diabetes mellitus with foot ulcer (principal); I70.234 Atherosclerosis of native arteries of right leg with ulceration of heel and midfoot; L97.412 Non-pressure chronic ulcer of right heel and midfoot with fat layer exposed; E11.22 Type 2 diabetes mellitus with diabetic chronic kidney disease; N18.6 End stage renal disease; E11.42 Type 2 diabetes mellitus with diabetic polyneuropathy; I50.9 Heart failure, unspecified; Z99.2 Dependence on renal dialysis; Z87.891 Personal history of nicotine dependence; Z95.820 Peripheral vascular angioplasty status with implants and grafts; Z89.512 Acquired absence of left leg below knee ==

== ENCOUNTER → 2018-11-02 | Outpatient (CLI) | payer OTHER | LOC: M.WC 04:40 | DX: E11.621 Type 2 diabetes mellitus with foot ulcer (principal); I70.234 Atherosclerosis of native arteries of right leg with ulceration of heel and midfoot; L97.412 Non-pressure chronic ulcer of right heel and midfoot with fat layer exposed; L84 Corns and callosities; E11.42 Type 2 diabetes mellitus with diabetic polyneuropathy; E11.22 Type 2 diabetes mellitus with diabetic chronic kidney disease; N18.6 End stage renal disease; I50.9 Heart failure, unspecified; Z87.891 Personal history of nicotine dependence; Z95.820 Peripheral vascular angioplasty status with implants and grafts; Z99.2 Dependence on renal dialysis; Z89.512 Acquired absence of left leg below knee ==

== ENCOUNTER → 2018-11-16 | Outpatient (CLI) | payer OTHER | LOC: M.WC 12:46 | DX: E11.621 Type 2 diabetes mellitus with foot ulcer (principal); I70.234 Atherosclerosis of native arteries of right leg with ulceration of heel and midfoot; L97.412 Non-pressure chronic ulcer of right heel and midfoot with fat layer exposed; E11.22 Type 2 diabetes mellitus with diabetic chronic kidney disease; N18.6 End stage renal disease; I50.9 Heart failure, unspecified; Z89.512 Acquired absence of left leg below knee; Z87.891 Personal history of nicotine dependence; Z99.2 Dependence on renal dialysis ==

== ENCOUNTER → 2018-11-23 | Outpatient (CLI) | payer OTHER | LOC: M.WC 02:16 | DX: E11.621 Type 2 diabetes mellitus with foot ulcer (principal); I70.234 Atherosclerosis of native arteries of right leg with ulceration of heel and midfoot; L97.412 Non-pressure chronic ulcer of right heel and midfoot with fat layer exposed; E11.22 Type 2 diabetes mellitus with diabetic chronic kidney disease; N18.6 End stage renal disease; I50.9 Heart failure, unspecified; L84 Corns and callosities; Z99.2 Dependence on renal dialysis; Z89.512 Acquired absence of left leg below knee; Z87.891 Personal history of nicotine dependence ==

== ENCOUNTER → 2018-12-07 | Outpatient (CLI) | payer OTHER | LOC: M.WC 11-30 13:00 | DX: E11.621 Type 2 diabetes mellitus with foot ulcer (principal); I70.234 Atherosclerosis of native arteries of right leg with ulceration of heel and midfoot; L97.412 Non-pressure chronic ulcer of right heel and midfoot with fat layer exposed; E11.51 Type 2 diabetes mellitus with diabetic peripheral angiopathy without gangrene; E11.22 Type 2 diabetes mellitus with diabetic chronic kidney disease; N18.6 End stage renal disease; I50.9 Heart failure, unspecified; Z99.2 Dependence on renal dialysis; Z89.512 Acquired absence of left leg below knee; Z87.891 Personal history of nicotine dependence ==

== ENCOUNTER → 2018-12-14 | Outpatient (CLI) | payer OTHER | LOC: M.WC 04:00 | DX: E11.621 Type 2 diabetes mellitus with foot ulcer (principal); I70.234 Atherosclerosis of native arteries of right leg with ulceration of heel and midfoot; L97.412 Non-pressure chronic ulcer of right heel and midfoot with fat layer exposed; E11.42 Type 2 diabetes mellitus with diabetic polyneuropathy; E11.22 Type 2 diabetes mellitus with diabetic chronic kidney disease; N18.6 End stage renal disease; I50.9 Heart failure, unspecified; Z99.2 Dependence on renal dialysis; Z89.512 Acquired absence of left leg below knee; Z87.891 Personal history of nicotine dependence ==

== ENCOUNTER → 2019-01-18 | Outpatient (CLI) | payer OTHER | LOC: M.WC 04:41 | DX: E11.621 Type 2 diabetes mellitus with foot ulcer (principal); I70.234 Atherosclerosis of native arteries of right leg with ulceration of heel and midfoot; L97.412 Non-pressure chronic ulcer of right heel and midfoot with fat layer exposed; E11.51 Type 2 diabetes mellitus with diabetic peripheral angiopathy without gangrene; E11.22 Type 2 diabetes mellitus with diabetic chronic kidney disease; N18.6 End stage renal disease; I50.9 Heart failure, unspecified; Z95.820 Peripheral vascular angioplasty status with implants and grafts; Z99.2 Dependence on renal dialysis; Z89.512 Acquired absence of left leg below knee; Z87.891 Personal history of nicotine dependence ==

== ENCOUNTER → 2019-02-01 | Outpatient (CLI) | payer OTHER | LOC: M.WC 09:31 | DX: E11.621 Type 2 diabetes mellitus with foot ulcer (principal); I70.234 Atherosclerosis of native arteries of right leg with ulceration of heel and midfoot; L97.412 Non-pressure chronic ulcer of right heel and midfoot with fat layer exposed; E11.51 Type 2 diabetes mellitus with diabetic peripheral angiopathy without gangrene; E11.42 Type 2 diabetes mellitus with diabetic polyneuropathy; E11.22 Type 2 diabetes mellitus with diabetic chronic kidney disease; N18.6 End stage renal disease; I50.9 Heart failure, unspecified; Z99.2 Dependence on renal dialysis; Z87.891 Personal history of nicotine dependence; Z89.512 Acquired absence of left leg below knee ==

== ENCOUNTER → 2019-02-06 | Outpatient (CLI) | payer OTHER | LOC: M.MRI 07:18 | DX: E11.621 Type 2 diabetes mellitus with foot ulcer (principal); E11.69 Type 2 diabetes mellitus with other specified complication; M86.8X7 Other osteomyelitis, ankle and foot ==

== ENCOUNTER → 2019-02-08 | Outpatient (CLI) | payer OTHER ==
[2019-02-08 14:36] LABS: ABSOLUTE EOSINOPHILS 0.1 thou/uL (0.0-0.7); ABSOLUTE LYMPHOCYTES 1.1 thou/uL (0.8-5.3); ABSOLUTE MONOCYTES 0.5 thou/uL (0.0-1.2); ABSOLUTE NEUTROPHILS 4.5 thou/uL (1.6-8.1); BASOPHILS 0.7 %; EOSINOPHILS 2.3 %; HEMATOCRIT 34.5 % (42.0-52.0); HEMOGLOBIN 11.8 gm/dL (14.0-18.0); LYMPHOCYTES 17.6 %; MCH 33.9 pg (26.0-34.0); MCHC 34.1 g/dL (28.0-37.0); MCV 99.4 fL (80.0-100.0); MONOCYTES 7.6 %; MPV 7.9 fl. (7.2-11.1); NUCLEATED RBCS 0 /100WBC; PLATELET COUNT* 257 thou/uL (150-400); POLYS 71.8 %; RBC 3.47 mil/uL (4.50-6.00); RDW-CV 17.3 % (10.5-14.5); WBC 6.3 thou/uL (4.0-11.0)
[2019-02-08 14:39] LABS: ALBUMIN 3.7 g/dL (3.4-5.0); CALCIUM 9.6 mg/dL (8.5-10.1); CREATININE 7.1 mg/dL (0.6-1.3); POTASSIUM 4.5 mmol/L (3.5-5.1)
[2019-02-08 14:50] LABS: PREALBUMIN 35.6 mg/dL (18.0-35.7)
[2019-02-08 15:40] LABS: ESR (SEDRATE) 11 mm/hr (0-20)
[2019-02-09 04:05] LABS: GLYCOHEMOGLOBIN (HGB A1C) 6.2 % (4.8-5.6)
== END ==
LOC: M.WC 04:17
PROVIDERS: Podiatrist Foot & Ankle Surgery
DX: E11.621 Type 2 diabetes mellitus with foot ulcer (principal); I70.234 Atherosclerosis of native arteries of right leg with ulceration of heel and midfoot; L97.412 Non-pressure chronic ulcer of right heel and midfoot with fat layer exposed; E11.22 Type 2 diabetes mellitus with diabetic chronic kidney disease; N18.6 End stage renal disease; E11.42 Type 2 diabetes mellitus with diabetic polyneuropathy; E11.51 Type 2 diabetes mellitus with diabetic peripheral angiopathy without gangrene; I50.9 Heart failure, unspecified; Z89.512 Acquired absence of left leg below knee; Z99.2 Dependence on renal dialysis; Z87.891 Personal history of nicotine dependence; Z95.828 Presence of other vascular implants and grafts

== ENCOUNTER → 2019-03-01 | Outpatient (CLI) | payer OTHER | LOC: M.WC 05:10 | DX: E11.621 Type 2 diabetes mellitus with foot ulcer (principal); I70.234 Atherosclerosis of native arteries of right leg with ulceration of heel and midfoot; L97.412 Non-pressure chronic ulcer of right heel and midfoot with fat layer exposed; E11.42 Type 2 diabetes mellitus with diabetic polyneuropathy; E11.22 Type 2 diabetes mellitus with diabetic chronic kidney disease; N18.6 End stage renal disease; I50.9 Heart failure, unspecified; Z99.2 Dependence on renal dialysis; Z87.891 Personal history of nicotine dependence; Z89.512 Acquired absence of left leg below knee ==

== ENCOUNTER → 2019-03-22 | Outpatient (CLI) | payer OTHER | LOC: M.WC 04:34 | DX: E11.621 Type 2 diabetes mellitus with foot ulcer (principal); I70.234 Atherosclerosis of native arteries of right leg with ulceration of heel and midfoot; L97.412 Non-pressure chronic ulcer of right heel and midfoot with fat layer exposed; E11.51 Type 2 diabetes mellitus with diabetic peripheral angiopathy without gangrene; E11.22 Type 2 diabetes mellitus with diabetic chronic kidney disease; N18.6 End stage renal disease; I50.9 Heart failure, unspecified; Z99.2 Dependence on renal dialysis; Z89.512 Acquired absence of left leg below knee; Z95.820 Peripheral vascular angioplasty status with implants and grafts; Z87.891 Personal history of nicotine dependence ==

== ENCOUNTER → 2019-04-12 | Outpatient (CLI) | payer OTHER ==
[~2019-04-12] MED LIST changes: +CENTRUM SILVER1 EAC2 PO; +VITAMIN D3400 UNIT PO
== END ==
LOC: M.WC 04:53
DX: E11.621 Type 2 diabetes mellitus with foot ulcer (principal); L97.412 Non-pressure chronic ulcer of right heel and midfoot with fat layer exposed; I70.234 Atherosclerosis of native arteries of right leg with ulceration of heel and midfoot; E11.22 Type 2 diabetes mellitus with diabetic chronic kidney disease; N18.6 End stage renal disease; E11.51 Type 2 diabetes mellitus with diabetic peripheral angiopathy without gangrene; I50.9 Heart failure, unspecified; Z99.2 Dependence on renal dialysis; Z87.891 Personal history of nicotine dependence; Z89.512 Acquired absence of left leg below knee; Z95.820 Peripheral vascular angioplasty status with implants and grafts

== ENCOUNTER 2019-04-14 19:01 | Inpatient (IN) | payer OTHER ==
[~2019-04-14] VITALS: Ht 167.6 cm; Wt 81.9 kg
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
[~2019-04-14 19:01] MED LIST changes: -CENTRUM SILVER1 EAC2 PO; -VITAMIN D3400 UNIT PO
[2019-04-14 19:12] VITALS: BP 198/62
[2019-04-14 20:27] LABS: HEMATOCRIT 33.1 % (42.0-52.0); HEMOGLOBIN 11.3 gm/dL (14.0-18.0); MCH 33.6 pg (26.0-34.0); MCV 98.9 fL (80.0-100.0); MPV 8.1 fl. (7.2-11.1); NUCLEATED RBCS 0 /100WBC; PLATELET COUNT* 274 thou/uL (150-400); RBC 3.35 mil/uL (4.50-6.00); RDW-CV 16.2 % (10.5-14.5); WBC 10.9 thou/uL (4.0-11.0)
[2019-04-14 20:34] LABS: CALCIUM 9.5 mg/dL (8.5-10.1); CREATININE 7.1 mg/dL (0.6-1.3); INR 1.1; PROTIME 11.4 Seconds (9.20-11.50)
[2019-04-14 20:38] LABS: ALBUMIN 3.9 g/dL (3.4-5.0); TOTAL BILIRUBIN 0.5 mg/dL (<0.1-1.0); TOTAL PROTEIN 7.1 g/dL (6.4-8.2)
[2019-04-14 20:55] LABS: ABSOLUTE MONOCYTES 0.7 thou/uL (0.0-1.2); ABSOLUTE NEUTROPHILS 9.3 thou/uL (1.6-8.1)
[2019-04-14 20:56] LABS: PLATELET ESTIMATE ADEQUATE
[2019-04-14 23:33] VITALS: BP 187/70
[2019-04-15 00:56] VITALS: BP 188/83
--- NOTE | 2019-04-15 02:46 | NUR ---
ASSUMED FROM ED UPON ARRIVAL UNIT PT ALERT AND ORIENTED X4, AT BEDSIDE, PT DENIES PAIN AT PRESENT ONLY C/O PAIN WITH MOVEMENT. DATA BASE COMPLETED AND ASSESSMENT COMPLETED, DISCUSSED PLAN OF CARE AND AGREEABLE. RESTING WELL THROUGHOUT HOURLY ROUNDS
[2019-04-15 07:40] VITALS: BP 149/68
[2019-04-15] MEDS ORDERED: CENTRUM SILVER1 EAC2 PO (09:49)
[2019-04-15] MEDS ORDERED: VITAMIN D3400 UNIT PO (09:49)
[2019-04-15] MEDS ORDERED: RENAL CAPS SOFTG1 MG PO (09:50)
[2019-04-15] MEDS ORDERED: PLAVIX 75 MG TA75 M1 PO (09:50)
[2019-04-15 16:00] VITALS: BP 150/60
--- NOTE | 2019-04-15 17:16 | NUR ---
PT REMAINED ALERT AND ORIENTED. PT SLEPT MOST OF SHIFT. PT C/O PAIN, MEDS GIVEN ORDERED. PT IN DIALYSIS CURRENTLY. FALL RISK PRECAUTIONS IN PLACE. HOURLY ROUNDING COMPLETED. WILL CONTINUE TO MONITOR.
[2019-04-15 23:00] VITALS: BP 149/54
[2019-04-16 01:00] VITALS: BP 138/38
--- NOTE | 2019-04-16 07:23 | NUR ---
PATIENT RECEIVED DIALYSIS AND BACK TO THE ROOM IN THE EVENING. PATIENT SLEPT WELL DURING THE NIGHT. VSS ON RA. NO C/O PAIN. PATIENT REMAINS ON CONTACT ISOLATION. RIGHT ARM FISTULA WITH GOOD THRILL AND BRUIT. IV IN LEFT HAND-SL. PATIENT HAS REMAINED ON BEDREST. PATIENT INSTRUCTED TO USE CALL LIGHT WHEN NEEDING ASSISTANCE. HOURLY ROUNDS MADE. WILL CONTINUE WITH PLAN OF CARE AND NURSING TO MONITOR.
[2019-04-16 07:30] VITALS: BP 160/57
[2019-04-16 16:00] VITALS: BP 139/38
--- NOTE | 2019-04-16 17:26 | NUR ---
PT ALERT AND DROWSY. DILAUDID GIVEN THIS MORNING ORDERED. PT WORKED WITH THERAPY. ABG ORDERED. FALL RISK PRECAUTIONS IN PLACE. HOURLY ROUONDING COMPLETED. WILL CONTINUE TO MONITOR.
[2019-04-16 18:00] LABS: BE 2.7 mmol/L (-2 to +3); PCO2 43.3 mmHg (35.0-45.0); PO2 88.1 mmHg (75.0-100.0); pH 7.421 (7.340-7.450)
[2019-04-16 21:00] VITALS: BP 164/67
--- NOTE | 2019-04-17 06:25 | NUR ---
PATIENT HAS SLEPT WELL THROUGHOUT MOST OF THE NIGHT. VSS ON RA. NO C/O PAIN EXCEPT WHEN REPOSITIONING. PATIENT HAS REMAINED IN BED DURING THE NIGHT. IV IN LEFT HAND-SL. RIGHT UPPER ARM FISTULA WITH GOOD THRILL AND BRUIT NOTED. FALL PRECAUTIONS IN PLACE AND HOURLY ROUNDS MADE. WILL CONTINUE WITH PLAN OF CARE AND NURSING TO MONITOR.
[2019-04-17 07:50] VITALS: BP 152/38
--- NOTE | 2019-04-17 12:04 | NUR ---
Nutrition: pt consult for wound on rt heel. Hemodialysis pt on renal diet. No intake records. Wt up from prior admits. Albumin WNL. Meds reviewed. Appears at low nutrition risk at this time. Will add Nepro daily for additional protein.
--- NOTE | 2019-04-17 15:01 | NUR ---
FABRIC FINISHER SPOKE TO THE PATIENT AND HIS SPOUSE TO DISCUSS HIS HOME SITUATION, DISCHARGE PLANNING, AND TO INFORM OF THE ROLE OF CM. PATIENT IS ALERT AND ORIENTED. PATIENT IS NORMALLY INDEPENDENT WITH ADL'S. PATIENT SPOUSE INFORMS THAT SHE IS AVAILABLE TO ASSIST THE PATIENT AT HOME NEEDED AT D/C. PATIENT CURRENTLY RECEIVES DIALYSIS TREATMENT AT [facility]. PATIENT USES W/C FOR MOBILITY, AND HIS HOME IS EQUIPPED WITH A W/C RAMP. PATIENT IS CURRENTLY ON-SERVICE WITH [facility] AND THIS D/C ELECTRONIC SCALE ASSEMBLER AND TESTER SPOKE TO PATRICIA WITH [facility] TO COMFIRM THIS. PLAN IS FOR THE PATIENT TO HAVE SURGERY TOMORROW. PATIENT'S INFORMS THAT THEY ARE INTERESTED IN THE PATIENT GOING TO THE ACUTE INPATIENT REHAB UNIT HERE IN THE HOSPITAL WHEN MEDICALLY STABLE. D/C ELECTRONIC SCALE ASSEMBLER AND TESTER SPOKE TO DR CADENA ABOUT THIS AND HE IS IN AGREEMENT AND PLANS TO CONSULT THE ACUTE INPATIENT REHAB UNIT. CM WILL REMAIN AVAILABLE TO ASSIST AND FOLLOW NEEDED.
--- NOTE | 2019-04-17 16:11 | NUR ---
WOUND NURSE: PATIENT SEEN TO ADDRESS DFU ON RIGHT FOOT (HEEL). PRESENTS WITH FULL THICKNESS TISSUE LOSS, RED GRANULATION TISSOU OVER THE WOUND OPENING, BUT VERY SHALLOW AND CLOSE TO BONE. MODERATE AMOUNT OF SEROSANGUINOUS DRAINAGE NOTED WITH DRESSING CHANGE. THIN LAYER OF EPITHELIAL TISSUE COVERING THE REMAINING PART OF THE WOUND. CLEANSED WITH WOUND CLEANSER AND GAUZE; THEN APPLIED AQUACEL AG UNDER ABD, THEN WRAPPED WITH KERLEX AND SECURED WITH TAPE. APPLIED PRAFO BOOT AND INSTRUCTED PATIENT TO WEAR THE PRAFO AT ALL TIMES TO OFFLOAD THE HEEL. PATIENT STATED HE UNDERSTOOD.
[2019-04-17 16:20] VITALS: BP 182/72
--- NOTE | 2019-04-17 17:11 | EKG ---
[place] [address] ELECTROCARDIOGRAM REPORT Name: DIONNEMICHAELROBERTOTERRELL ZURITA Room: [address] ADM IN M.R.#: [id number] Admission: 04/14/19 Attend Phys: Camille Moise Discharge: Date of : 46 Report #: [id number] THIS REPORT FOR: //name// [facility] Test Date: 2019-04-17 Test Time: 14:10:10 Pat Name: TERRELL IGNACIO Department: Room: [address] Gender: M Phlebotomy Tech: : 1950 Requested By: Kit Lanza Order Number: [id number] Reading MD: Kit Lange Measurements Intervals [place] Rate: 65 P: 21 AR: 236 QRS: -73 QRSD: 146 T: 98 QT: 457 QTc: 476 Interpretive Statements Sinus rhythm Prolonged AR interval Probable left atrial enlargement Right bundle branch block LVH with IVCD and secondary repol abnrm Borderline prolonged QT interval Compared to ECG 05/04/2018 10:58:59 Early repolarization now present Electronically Signed On 04-17-2019 17:11:42 CDT by Kit Lange [email or web address] <ELECTRONICALLY SIGNED> By: Kit Lange MD, [facility] 04/17/19 1711 1410 1410 Kit Lange MD, [facility] /EPI
--- NOTE | 2019-04-17 18:40 | NUR ---
ASSUMED CARE OF PATIENT AT APPROX 0730. ALERT AND OREINTED. NO COMPLAINTS OF PAIN, NAUSEA, OR SOA. PATIENT DECIDED THIS AFTERNOON THAT HE WANTED TO HAVE SURGERY ON HIS FRACTURE, SCHEDULED FOR [address] NGUYEN. NO COMPLAINTS THROUGHOUT SHIFT. RESTED COMFORTABLY IN BED AND USING URINAL AND BEDPAN. WORKED WITH TERAPY TODAY AND PROGRESSED TOWARD GOALS. FALL PRECAUTIONS IN PLACE, CALL LIGHT WITHIN REACH, HOURLY ROUNDS COMPLETED, NURSING WILL CONTINUE TO MONITOR.
[2019-04-17 20:30] VITALS: BP 156/51
[2019-04-17 22:06] VITALS: BP 156/51; BP 195/88
--- NOTE | 2019-04-18 07:33 | NUR ---
PATIENT SLEPT WELL THROUGHOUT THE NIGHT. VSS ON RA. NO C/O PAIN EXCEPT WHEN REPOSITIONED. PATIENT REFUSING TO BE TURNED AT TIMES. PATIENT REMAINED NPO SINCE MIDNIGHT. RIGHT UPPER ARM FISTULA HAS GOOD BRUIT AND THRILL. PATIENT WENT TO SURGERY THIS AM. WILL CONTINUE WITH PLAN OF CARE AND NURSING TO MONITOR.
[2019-04-18 07:49] LABS: CALCIUM 9.7 mg/dL (8.5-10.1); CREATININE 11.5 mg/dL (0.6-1.3); POTASSIUM 5.1 mmol/L (3.5-5.1)
[2019-04-18 10:00] VITALS: BP 198/69
--- NOTE | 2019-04-18 10:05 | NUR ---
PT RETURNED FROM SURGERY. PT IS ALERT AND ORIENTED AND DROWSY. PT RESTING IN ROOM. LT HIP DRESSING C/D/I. WILL GO DOWN FOR DIALYSIS SOON. BP ELEVATED 198/69. FALL RISK PRECAUTIONS IN PLACE. HOURLY ROUNDING COMPLETED. WILL CONTINUE TO MONITOR.
--- NOTE | 2019-04-18 11:07 | NUR ---
PT LEFT FOR DIALYSIS, HAD PHYSICAL THERAPY PRIOR TO LEAVING UNIT. FALL RISK PRECAUTIONS IN PLACE. HOURLY ROUNDING COMPLETED. WILL CONTINUE TO MONITOR.
[2019-04-18 16:01] VITALS: BP 150/55
--- NOTE | 2019-04-18 17:23 | NUR ---
PT REMAINED ALERT AND ORIENTED AND DROWSY. PT HAD SURGERY TODAY AND DIALYSIS COMPLETED. PT RESTING IN BED. FALL RISK PRECAUTIONS IN PLACE. HOURLY ROUNDING COMPLETED. WILL CONTINUE TO MONITOR.
[2019-04-18 21:00] VITALS: BP 185/73
[2019-04-19] VITALS: BP 163/43
[2019-04-19 04:00] VITALS: BP 148/43
[2019-04-19 07:20] VITALS: BP 153/56
--- NOTE | 2019-04-19 07:42 | NUR ---
PT WAS SLEEPY AND CONFUSED LAST NIGHT. MEDS GIVEN PER EMAR. VSS ON 3L NC. PT KEPT REMOVING CAPNO D/T CONFUSION. ISOLATION PRECAUTION IN PLACE. PT DID NOT VOID SINCE LAST NIGHT. BLADDER SCAN SHOWED >500ML URINE. FORTE INSERTED PER DR THOMAS'S ORDER. 600ML NOTED IN THE FORTE. CALL LIGHT WITHIN REACH. HOURLY ROUNDINGS MADE. WILL CONTINUE TO MONITOR.
[2019-04-19 16:00] VITALS: BP 156/67
--- NOTE | 2019-04-19 17:12 | NUR ---
PT REMAINED ALERT AND ORIENTED. PT RESTING IN ROOM. PT WORKED WITH THERAPY. INSULIN GIVEN NEEDED. FALL RISK PRECAUTIONS IN PLACE. HOURLY ROUNDING COMPLETED. WILL CONTINUE TO MONITOR.
[2019-04-19 18:47] LABS: URINE BILIRUBIN NEGATIVE (Negative); URINE BLOOD 3+ (Negative); URINE CLARITY CLEAR; URINE COLOR YELLOW; URINE GLUCOSE-RANDOM 1+ (Negative); URINE KETONES NEGATIVE (Negative); URINE LEUKOCYTES-REFLEX TRACE (Negative); URINE NITRITE-REFLEX NEGATIVE (Negative); URINE PROTEIN 3+ (Negative); URINE SPECIFIC GRAVITY 1.015 (1.005-1.030); URINE UROBILINOGEN 0.2 E.U./dl (0.2-1.0)
[2019-04-19 18:58] LABS: BACTERIA-REFLEX 1-9 Few /HPF (None Seen); CRYSTALS None Seen /LPF (None Seen); HYALINE CASTS 0-3 Few /LPF (None Seen); MUCUS None Seen strn/LPF (None Seen); SQUAMOUS NONE SEEN /LPF (0-3); URINE RBC >20 Many /HPF (0-2); URINE WBC-REFLEX 0-5 Rare /HPF (0-5)
[2019-04-20] VITALS: BP 133/43
[2019-04-20 03:39] LABS: ABSOLUTE EOSINOPHILS 0.2 thou/uL (0.0-0.7); ABSOLUTE MONOCYTES 0.7 thou/uL (0.0-1.2); ABSOLUTE NEUTROPHILS 4.8 thou/uL (1.6-8.1); BASOPHILS 0.3 %; EOSINOPHILS 2.9 %; HEMATOCRIT 30.7 % (42.0-52.0); HEMOGLOBIN 10.2 gm/dL (14.0-18.0); LYMPHOCYTES 14.4 %; MCH 32.8 pg (26.0-34.0); MCHC 33.1 g/dL (28.0-37.0); MONOCYTES 10.9 %; MPV 8.2 fl. (7.2-11.1); NUCLEATED RBCS 0 /100WBC; PLATELET COUNT* 254 thou/uL (150-400); POLYS 71.5 %; RDW-CV 16.1 % (10.5-14.5); WBC 6.7 thou/uL (4.0-11.0)
[2019-04-20 04:00] VITALS: BP 126/50
[2019-04-20 04:02] LABS: CALCIUM 9.6 mg/dL (8.5-10.1); POTASSIUM 4.7 mmol/L (3.5-5.1)
[2019-04-20 04:03] LABS: CREATININE 9.2 mg/dL (0.6-1.3)
--- NOTE | 2019-04-20 06:37 | NUR ---
PATIENT SLEPT MOST OF THE NIGHT. PATIENT HAD NO COMPLAINTS OF PAIN. IV REMAINS SALINE LOCKED. DRESSING TO LEFT HIP REMAINS INTACT. FORTE REMAINS TO DEPENDENT DRAIN ONLY TRACE AMOUNT OF URINE IN CATHETER BUT PATIENT IS A DIALYIS PATIENT. WILL CONTINUE TO MONITOR.
[2019-04-20 08:40] VITALS: BP 139/34
[2019-04-20 16:00] VITALS: BP 153/63
--- NOTE | 2019-04-20 17:37 | NUR ---
PATIENT RESTING IN BED. PATIENT DENIES ANY PAIN. PATIENT HAD DRESSING TO RIGHT HEEL CHANGED THIS EVENING. PATIENT WAS IN DIALYSIS THIS AFTERNOON WITHOUT INCIDENT. PATIENT HAS NOT BEEN OUT OF BED TODAY. PATIENT HAS FAIR APPETITE. PATIENT DENIES ANY NEEDS AT THIS TIME. CALL LIGHT WITHIN REACH. WILL CONTINUE TO MONITOR.
[2019-04-20 21:00] VITALS: BP 187/60
[2019-04-20 23:58] VITALS: BP 159/45
--- NOTE | 2019-04-21 05:46 | NUR ---
PATIENT SLEPT MOST OF THE NIGHT. IV REMAINS SALINE LOCKED. FORTE REMAINS TO DEPENDENT DRAIN. PATIENT HAD NO COMPLAINTS OF PAIN. WILL CONTINUE TO MONITOR.
[2019-04-21 07:55] VITALS: BP 131/46
[2019-04-21 14:06] LABS: HEPATITIS B SURFACE AG Negative (Negative)
--- NOTE | 2019-04-21 14:50 | NUR ---
PRACTICE BILLING ASSOCIATE SPOKE TO THE PATIENT'S SPOUSE TO DISCUSS DISCHARGE PLANNING NEEDS. PATIENT'S SPOUSE INFORMS THAT THE PLAN IS FOR THE PATIENT TO RETURN HOME WITH HER AT D/C, SHE WILL PROVIDE TRANSPORT HOME SHE OWNS A WHEELCHAIR ACCESSIBLE VAN, AND SHE WILL CONTINUE TO PROVIDE CARES FOR THE PATIENT. PHYSICIAN INFORMS THAT THE PATIENT WILL MOST LIKELY REMAIN HERE IN THE HOSPITAL OVER THE WEEKEND. CM WILL REMAIN AVIALABLE TO ASSIST AND FOLLOW NEEDED.
--- NOTE | 2019-04-21 14:57 | NUR ---
FOOD ASSEMBLER SPOKE TO THE PATIENT AND SPOUSE TO DISCUSS DISCHARGE PLANNING NEEDS. PATIENT AND SPOUSE HOPEFUL THAT THE PATIENT WILL BE ACCEPTED TO THE INPATIENT REHAB UNIT. PATIENT'S ADMISSION TO THE INPATIENT REHAB UNIT IS PENDING INSURANCE AUTH. D/C TECHNOLOGY LAB TEACHER EXPLAINED THE INPORTANCE OF CONTINUIN TO WORK WITH PT AND OT OVER THE WEEKEND. PATIENT AND SPOUSE IN AGREEMENT. CM WILL REMAIN AVAILABLE TO ASSIST AND FOLLOW NEEDED.
[2019-04-21 16:30] VITALS: BP 141/39
--- NOTE | 2019-04-21 17:30 | NUR ---
PATIENT RESTING IN BED. PATIENT IS UP TO WHEELCHAIR WITH SLIDEBOARD. PATIENT WORKED WITH PHYSICAL AND OCCUPATIONAL THERAPIES. PATIENT DENIES ANY PAIN. PATIENT HAS FAIR APPETITE. PATIENT DENIES ANY NEEDS AT THIS TIME. CALL LIGHT WITHIN REACH. WILL CONTINUE TO MONITOR.
[2019-04-21 20:00] VITALS: BP 150/50
[2019-04-22] VITALS: BP 142/56
[2019-04-22 04:25] VITALS: BP 139/47
--- NOTE | 2019-04-22 05:31 | NUR ---
ASSUMED CARE AT 1930. PATIENT RESTING IN BED. SLEPT WELL THROUGH THE NIGHT. TAKES PILLS WHOLE WITHOUT PROBLEMS. SALINE LOCK CONTINUES. FORTE TO DD. NO C/O PAIN. HOURLY ROUNDS CONTINUE. CALL LITE IN REACH.
[2019-04-22 09:28] VITALS: BP 150/48
[2019-04-22 16:30] VITALS: BP 161/39
--- NOTE | 2019-04-22 17:09 | NUR ---
ASSUMED CARE OF PATIENT AT APPROX 0730. ALERT AND OREINTED X4. ASSESSMENT COMPLETED AND CHARTED. VSS ON ROOM AIR. NO COMPLAINTS OF PAIN, NAUSEA, OR SOA. PATIENT UP TO DIALYSIS AT APPROX 0930 AND RETURNED AT APPROX 1315. NOMAN CALLED OUT THIS AFTERNOON, ASKING TO USE THE COMMODE INSTEAD OF THE BEDPAN. I NOTICED A WOUND ON THE PATIENTS LEFT BUTTOCK THAT HAD NOT BEEN DOCUMENTED IN THE CHART. A PHOTO WAS TAKEN AND PLACED IN THE CHART. PATIENT GOTTEN UP WITH MAX ASSIST WITH 2 STAFF MEMBERS TO THE COMMODE, WOULD NOT RECCOMEND DOING THIS AGAIN, BEDPAN WOULD BE SAFER. FALL PRECAUTIONS IN PLACE, CALL LIGHT WITHIN REACH, HOURLY ROUNDS COMPLETED WHILE PATIENT, NURSING WILL CONTINUE TO MONITOR.
[2019-04-22 20:00] VITALS: BP 144/96
[2019-04-23] VITALS: BP 137/45
[2019-04-23 04:00] VITALS: BP 160/57
--- NOTE | 2019-04-23 05:33 | NUR ---
Alert and oriented x 4. He has a coverlett dressing that is dry and intact to the L hip. His stump has ruby software developer is in place. His rt leg has prafo boot on and gauze dressing under it, he has a pressure ulcer, on the rt heel. He has been in bed and turned almost every 2 hours. He hasn't had any urine output he is ESRD with dialysis. Rt upper arm has positive thrill and bruit. He denies pain. He has slept intermittenly.
[2019-04-23 07:30] VITALS: BP 150/34
--- NOTE | 2019-04-23 13:46 | CON ---
[address] [address] CONSULTATION Name: TERRELL IGNACIO Room: [address] IN M.R.#: [id number] Admission: 04/14/19 Attend Phys: Camille Moise Discharge: Date of : 46 Report #: [id number] THIS REPORT FOR: //name// CC: Alaina Rodriguez HISTORY OF PRESENT ILLNESS: This 68-year-old diabetic male fell last night directly on his left hip. He was brought to the Emergency Room, where he was found to have a undisplaced subcapital fracture of his left hip. He was advised to become hospitalized for acute care. He has an interesting history. He is a dialysis patient. While lying on his back, he developed decubitus ulcers over both heels. The ulcer about the left foot became progressively worse and subsequently required a left uchih-rnl-[id number] amputation. He was fitted for a prosthesis. He has not received physical therapy to the extent that he has ambulated, bore any weight on his left leg prosthesis. He complains of acute pain with any motion about his left hip. He relates that if he is lying still in bed, his pain is fairly mild. PHYSICAL EXAMINATION: GENERAL: Today revealed a well-developed, well-nourished male who is alert, cooperative, and well oriented x 3. MUSCULOSKELETAL: He was markedly tender about the left hip. He experienced acute pain with any motion and manipulation of his left hip. IMAGING: His x-rays were reviewed. He was noted to have an impacted, undisplaced subcapital fracture of the left hip. PLAN: Considering the patient's medical history and morbidities, I feel that he would do well if he is treated conservatively. He was advised that there is a possibility that this fracture may displace or he may develop avascular necrosis of his left hip, which would require further surgery. He was advised that if his fracture is stabilized with multiple pinning that this would decrease his pain with activities such as transferring, moving from a bed to a chair. Since he is a dialysis patient, he will have to go to a dialysis unit 3 times a week, he also has other doctors' appointments that he attends to. The family will discuss whether they would like to consider multiple pinning of his left hip or they would prefer to allow his fracture to heal with conservative treatment. They related that they will probably decide one way or another within the day. DIAGNOSES: Undisplaced subcapital fracture of the left hip, renal failure, diabetes mellitus, ulcer of the right foot, left below-knee amputee. <ELECTRONICALLY SIGNED> By: Kit Lanza MD 04/23/19 1346 [id number] Lanza MD /nt
[2019-04-23 16:30] VITALS: BP 154/45
--- NOTE | 2019-04-23 18:38 | NUR ---
ASSUMED CARE OF PATIENT AT APPROX 0730. ALERT AND ORIENTED X4. ASSESSMENT COMPLETED AND CHARTED. VSS ON ROOM AIR. NO COMPLAINTS OF PAIN, NAUSEA OR SOA. PATIENT UP TO CHEELCHAIR TODAY WITH ASSIST OF 2 STAFF AND SLIDEBOARD. WORKED WITH THERAPY AND PROGRESSED TOWARD GOALS. WEIGHT BEARING LIMITIATIONS ENCOURAGED WHILE TRANSFERRING. FALL PRECAUTIONS IN PLACE. CALL LIGHT WITHIN REACH. HOURLY ROUNDS COMPLETED. NURSING WILL CONTINUE TO MONITOR.
[2019-04-23 20:00] VITALS: BP 139/55
[2019-04-24] VITALS: BP 124/71
[2019-04-24 04:00] VITALS: BP 147/61
--- NOTE | 2019-04-24 06:41 | NUR ---
Alert and oriented x 4. Vitals are stable. Anuria this shift, he is a dialysis patient. He has been turned every 2 hours. L buttock still has discoloration. L hip coverlett dressing is dry and intact. Rt heel dressing was loose and changed this am,aquacel applied,then ABD,then kerlex wrap, then prafo boot reapplied. Rt upper arm dialysis fistula has positive bruit and thrill,dressing is intact. After rt heel dressing change he did begin having pain and his L hand IV wasn't working 1st dose of dilaudid was wasted. New IV started in LFA 20 gauge at 0610. IV dilaudid 0.5mg was administered at 0622. He did seem pretty drowsy after recieving this dose. Will cont to monitor.
[2019-04-24 07:35] VITALS: BP 168/66
--- NOTE | 2019-04-24 13:12 | NUR ---
SHELBI followed up with rehabilitation inspector, Jessica, who confirms that Dr Foy agreed with pt case ready to be presented to insurance so Jessica submitted for insurance auth. Possibility to know response on status of auth this afternoon. SW to continue to follow to assist with finalizing safe dc plan.
--- NOTE | 2019-04-24 13:17 | OP ---
[facility] [address] [place] [address] OPERATIVE REPORT Name: DIONNEMOIRATERRELL ZURITA Room: [address] IN M.R.#: [id number] Admission: 04/14/19 Attend Phys: Camille Moise Discharge: Date of : 46 Report #: [id number] THIS REPORT FOR: //name// CC: Alaina Rodriguez PREOPERATIVE DIAGNOSIS: Impacted subcapital fracture of the left hip. POSTOPERATIVE DIAGNOSIS: Impacted subcapital fracture of the left hip. OPERATIVE PROCEDURES PERFORMED: Open reduction and internal fixation of subcapital fracture of the left hip with multiple pinning. PROCEDURE: Under general endotracheal anesthesia, the patient was moved onto the Nawaf table in the supine position. External markings were made about the left hip under C-arm fluoroscopy control. A routine prep and drape was then performed of the left hip. Following a timeout procedure, a 1-inch skin incision was made over the lateral aspect of the hip. Three guidewires were passed across the fracture site under C-arm fluoroscopy control. A cortical drill was used to drill the cortex of the lateral aspect of the hip. Cannulated screws were then inserted across the fracture site under C-arm fluoroscopy guidance. The guidepins were then removed. The wound was irrigated and was closed with skin caron. A sterile dressing was applied. The patient tolerated the procedures well and was returned to the recovery area in good condition. <ELECTRONICALLY SIGNED> By: Kit Lanza MD 04/24/19 1317 [id number] [id number] Nellie Lanza MD /nt
--- NOTE | 2019-04-24 13:17 | CON ---
[facility] [address] [place] [address] CONSULTATION Name: TERRELL IGNACIO Room: [address] IN M.R.#: [id number] Admission: 04/14/19 Attend Phys: Camille Moise Discharge: Date of : 46 Report #: [id number] THIS REPORT FOR: //name// CC: Alaina Rodriguez DATE OF SERVICE: 04/18/2019 PROGRESS AND PRE-OPERATIVE NOTE This 68-year-old male desired to proceed with a multiple pinning of his left hip. The risk and benefits of surgery along with the possible complications had thoroughly been discussed with the patient and his during the past 2 days and after careful consideration, he and his family desired to proceed with multiple pinning of his left hip. The risks and benefits were again discussed with the patient. All questions were answered and arrangements were made for him to proceed with the surgical procedure. He decided that he wanted to proceed with the surgery to assure himself that his fracture would not displace and also to decrease his pain when transferring or moving. <ELECTRONICALLY SIGNED> By: Kit Lanza MD 04/24/19 1317 [id number] [id number] Lanza MD /nt
--- NOTE | 2019-04-24 16:55 | NUR ---
PT REMAINED ALERT AND ORIENTED. PT RESTING IN ROOM. TOE TOUCH WEIGHT BEARING TO RT LOW EXTREMITY. PT TRANSFERRED FROM BED TO WHEELCHAIR AND BACK. FALL RISK PRECAUTIONS IN PLACE. HOURLY ROUNDING COMPLETED. WILL CONTINUE TO MONITOR.
[2019-04-24 20:00] VITALS: BP 179/70
[2019-04-25] VITALS: BP 150/41
[2019-04-25 04:00] VITALS: BP 151/55
--- NOTE | 2019-04-25 05:14 | NUR ---
PT SLEPT MOST OF SHIFT. ASSESSMENT DOCUMENTED. MEDS GIVEN PER E-JAN. IV PATENT. NO REPORTS OF PAIN. DRESSING TO FOOT C/D/I, PRAFO BOOT IN PLACE. PT REPOSITIONED THROUGH NIGHT. WILL CONTINUE WITH PLAN OF CARE.
[2019-04-25 07:25] VITALS: BP 177/58
[2019-04-25 08:04] VITALS: BP 151/55
--- NOTE | 2019-04-25 11:40 | NUR ---
WOUND CARE FOLLOW UP: RIGHT HEEL ULCER RIGHT HEEL DRESSING REMOVED WITH SMALL AMOUNT OF DRIED SANGUINEOUS DRAINAGE. THE HEEL HAS AN AREA OF PURPLE NON BLANCHABLE DISCOLORATION. THERE IS DRIED SLOUGH MATERIAL AND DRIED SKIN COVERING THE WOUND. THERE IS NO ODOR. THE WOUND IS NOT WELL APPROXIMATED. THE APRIL WOUND IS PINK WITH SOME AREAS OF SCARRING. IT MEASURES 4.5X5.1X0.1. THE FOOT WAS WASHED WITH SOAP AND WATER AND PATTED DRY. THE HEEL WAS COVERED WITH AQUACEL AG AND ABD, WRAPPED WITH KERLIX AND SECURED WITH TAPE. THE PT ASKED ABOUT WRAPPING THE FOOT WITH AN ELIN BANDAGE. HE STATES THAT THEY USED TO WRAP IT AT THE WOUND CLINIC. PT EDUCATED THAT HE POSSIBLE MAY NEED TO WHEN HE BECOMES MORE MOBILE. THERE IS TRACE EDEMA IN THE RIGHT FOOT. PT WEARING PRAFO BOOT AT ALL TIMES. PT ALSO PRESENTS WITH ABRASION TO HIS RIGHT BUTTOCK. THERE IS PINK BLANHABLE AREA ON BILAT BUTTOCK. THERE IS AN AREA OF POSSIBLE EXCORIATION FROM SHEERING ON THE RIGHT BUTTOCK, IT MEASURES 3.6X2.2X0.0. THE AREA DOES CRISTINA AND THE SKIN IS LOOSE OVER THE AREA OF REDNESS. THERE IS NO DRAINAGE AND NO PAIN. THE PT STATES HE DOES NOT KNOW WHERE IT CAME FROM. NURSING STAFF REPORTS PT WAS ON A BEDPAN FOR SOME TIME OVER THE WEEKEND. THE AREA WAS CLEASED WITH SOAP AND WATER, BARRIOR CREAM APPLIED. THE PT WAS INSTRUCTED TO CHNAGE POSITION IN THE BED FREQUENTLY TO OFF LOAD THE AREA. PTS WAS ALSO PRESESNT AND BOTH VERBALIZED UNDERSTANDING.
--- NOTE | 2019-04-25 14:20 | NUR ---
Pt accepted to inpt rehab unit today.
--- NOTE | 2019-04-25 15:13 | NUR ---
REPORT GIVEN TO NURSE. PT BELONGINGS BROUGHT UP TO THIRD FLOOR. PT LEFT DIALYSIS TO REHAB. IV LEFT IN PLACE. FALL RISK PRECAUTIONS IN PLACE. HOURLY ROUNDING COMPLETED.
== END 2019-04-25 15:16 | DRG 480 ==
LOC: M.ERS 19:01 → M.TBA-ER 21:11 → M.ORTHSURG 21:11
PROVIDERS: Anesthesiology; Internal Medicine; Nurse Practitioner Family; ADMIT Internal Medicine
PROC: 0QS704Z Reposition Left Upper Femur with Internal Fixation Device, Open Approach (ICD-10-PCS; principal; 2019-04-18)
PROC: 5A1D70Z Performance of Urinary Filtration, Intermittent, Less than 6 Hours Per Day (ICD-10-PCS; 2019-04-18)
PROC: 5A1D70Z Performance of Urinary Filtration, Intermittent, Less than 6 Hours Per Day (ICD-10-PCS; 2019-04-20)
PROC: 5A1D70Z Performance of Urinary Filtration, Intermittent, Less than 6 Hours Per Day (ICD-10-PCS; 2019-04-25)
DX: S72.002A Fracture of unspecified part of neck of left femur, initial encounter for closed fracture (principal); N18.6 End stage renal disease; I12.0 Hypertensive chronic kidney disease with stage 5 chronic kidney disease or end stage renal disease; E11.22 Type 2 diabetes mellitus with diabetic chronic kidney disease; R33.9 Retention of urine, unspecified; E78.5 Hyperlipidemia, unspecified; Z99.2 Dependence on renal dialysis; Z89.519 Acquired absence of unspecified leg below knee; Z79.899 Other long term (current) drug therapy; V87.8XXA Person injured in other specified noncollision transport accidents involving motor vehicle (traffic), initial encounter; Y93.55 Activity, bike riding; Z86.73 Personal history of transient ischemic attack (TIA), and cerebral infarction without residual deficits; Y92.89 Other specified places as the place of occurrence of the external cause; Y99.8 Other external cause status

== ENCOUNTER 2019-04-25 14:32 | Inpatient (IN) | payer OTHER ==
[~2019-04-25] VITALS: Ht 175.3 cm; Wt 77.6 kg
[~2019-04-25 14:32] MED LIST changes: +CENTRUM SILVER1 EAC2 PO; +VITAMIN D3400 UNIT PO
[2019-04-25 17:19] VITALS: BP 138/35
--- NOTE | 2019-04-25 19:55 | NUR ---
ASSUMMED CARE OF PT AFTER DIALYSIS COMPLETE AND PT ADMITTED TO ROOM 320, PT ALERT AND ORIENTED, DENIES PAIN, LEFT HIP DRESSING C/D/I, DRESSING TO RIGHT HEEL INTACT WITH PRAFO BOOT ON, PT TOLERATED DINNER WELL, AND PT ORIENTED TO REHAB ROUTINE, ADMISSION COMPLETE, ASSESSMENT COMPLETE, HOURLY ROUNDING COMPLETED, WILL CONTINUE TO MONITOR.
[2019-04-25 20:00] VITALS: BP 151/44
--- NOTE | 2019-04-26 05:03 | NUR ---
ASSUMED PT CARE AT 1930. PT ALERT AND ORIENTED X4, POLITE AND COOPERATIVE WITH CARES. DENIES PAIN. LEFT HIP DRESSING C/D/I. DRESSING TO RIGHT HEEL INTACT, PRAFO BOOT IN PLACE. PT SLEPT WELL OVERNIGHT. SL REMOVED FROM LEFT FOREARM AT PT REQUEST. DIALYSIS SHUNT TO RIGHT UPPER ARM, DRESSING C/D/I. USES CALL LIGHT APPROPRIATELY. CALL LIGHT AND FREQUENTLY USED ITEMS WITHIN REACH, HOURLY ROUNDING IN PROGRESS, WILL CONTINUE TO MONITOR.
[2019-04-26 05:40] LABS: MCH 33.7 pg (26.0-34.0); MCHC 34.6 g/dL (28.0-37.0); MCV 97.3 fL (80.0-100.0); MPV 8.2 fl. (7.2-11.1); RBC 2.98 mil/uL (4.50-6.00); WBC 6.7 thou/uL (4.0-11.0)
[2019-04-26 06:06] LABS: CREATININE 5.2 mg/dL (0.6-1.3); POTASSIUM 4.1 mmol/L (3.5-5.1)
[2019-04-26 09:05] VITALS: BP 120/66
--- NOTE | 2019-04-26 11:03 | NUR ---
Nutrition: Pt admitted to rehab with Lt hip FX. H/o ESRD on HD, nonhealing foot wound. Wt: 167#. RX: MVI, folic acid, coreg, insulin, Calcium. Eating well on Renal/CHO count diet. BG 121, albumin 3.9, cr 5.2. RD ordered Ankit tid to aid in wound healing and protein maintenance. Will follow weekly.
--- NOTE | 2019-04-26 13:27 | NUR ---
PATIENT IS UP WITH ASSIST OF ONE. SPOKE WITH WOUND CLINIC DR VALLEJO AND HE GAVE VERBAL ORDER FOR WT BEARING TOLERATED TO RT LE. AVOID PRESSURE ON HEAL. SPOKE WITH PATIENT AND THERAPY CONCERNING TRANSFERS AND WT BEARING STATUS. EXPRESSED UNDERSTANDING
--- NOTE | 2019-04-26 14:30 | NUR ---
SW met with pt and pt to complete assessment, introduce self, and SW role on inpt rehab unit. Pt alert, oriented, pleasant. Pt lives at home with his who is available to provide caregiving as needed. Pt has wc, ramp. Pt hx/possibly current with [facility] HH. Pt active with [facility] dialysis clinic , Sat schedule. SW and Dr Foy met with pt and pt to review team conference summary and plan for reteam; pt to remain on rehab unit at least one more week with team to reassess pt length of stay during team conference next Wednesday. Pt and pt in agreement with plan. SW to continue to follow to assist with safe dc planning.
--- NOTE | 2019-04-26 18:54 | NUR ---
PATIENT ALERT AND ORIENTED X 4, NO COMPLAINTS. TRANSFER LIMITED ASSIST OF ONE. DENIES COMPLAINTS OF PAIN OR DISCOMFORT. NO SIGN OF DISTRESS.
[2019-04-26 20:00] VITALS: BP 130/47
--- NOTE | 2019-04-27 05:24 | NUR ---
ASSUMED PT CARE AT 1930. PT ALERT AND ORIENTED X4, POLITE AND COOPERATIVE WITH CARES. DENIES PAIN. LEFT HIP DRESSING C/D/I. DRESSING TO RIGHT HEEL INTACT. DIALYSIS SHUNT TO RIGHT UPPER ARM, DRESSING C/D/I. PT TO HAVE DIALYSIS TODAY. PT SLEPT WELL OVERNIGHT. USES CALL LIGHT APPROPRIATELY. CALL LIGHT AND FREQUENTLY USED ITEMS WITHIN REACH. HOURLY ROUNDING IN PROGRESS, WILL CONTINUE TO MONITOR.
[2019-04-27 08:04] VITALS: BP 146/56
--- NOTE | 2019-04-27 09:53 | NUR ---
ORDERS TO REMOVE SKYLAR. PATIENT IS UP IN WHEELCHAIR WITH ASSIST OF ONE. STAND PIVOT. IN SHOWER WITH OT AT THIS TIME. WHEN PATIENT RETURNS TO BED, WILL REMOVE SKYLAR.
--- NOTE | 2019-04-27 10:51 | NUR ---
EDUCATION PROVIDED ON NEEDING A URINE SAMPLE. PATIENT INSTRUCTED TO USE CALL LIGHT WHEN NEEDING TO URINATE. PATIENT IS DIALYSIS SO URINE OUTPUT IS MININAL.
[2019-04-27 20:00] VITALS: BP 151/41
--- NOTE | 2019-04-28 05:12 | NUR ---
ASSUMED CARE AT 1920. ALERT AND ORIENTED. PLEASANT. LEFT HIP ORIF WITH HX OF LEFT BKA. PRAFO BOOT TO RIGHT FOOT. PRATIMA SHUNT WITH PALPABLE THRILL AND AUDIBLE BRUIT. DENIED ANY PAIN. ANURIA. PT SAYS THAT DOES NOT USUALLY VOID AT NIGHT. SLEPT MOST OF THE NIGHT. CALL LIGHT IN REACH AND BED ALARM ON.
[2019-04-28 08:23] VITALS: BP 173/45
[2019-04-28 10:32] LABS: URINE BILIRUBIN NEGATIVE (Negative); URINE BLOOD TRACE (Negative); URINE CLARITY CLEAR; URINE COLOR YELLOW; URINE GLUCOSE-RANDOM 1+ (Negative); URINE KETONES NEGATIVE (Negative); URINE LEUKOCYTES NEGATIVE (Negative); URINE NITRITE NEGATIVE (Negative); URINE PROTEIN 3+ (Negative); URINE SPECIFIC GRAVITY 1.015 (1.005-1.030); URINE UROBILINOGEN 0.2 E.U./dl (0.2-1.0)
[2019-04-28 10:45] LABS: BACTERIA None Seen /HPF (None Seen); SQUAMOUS NONE SEEN /LPF (0-3); URINE RBC None Seen /HPF (0-2); URINE WBC 0-5 Rare /HPF (0-5)
[2019-04-28 10:46] LABS: CASTS None Seen /LPF (None Seen); CRYSTALS None Seen /LPF (None Seen); MUCUS None Seen strn/LPF (None Seen)
--- NOTE | 2019-04-28 13:15 | NUR ---
WOUND NURSE: PATIENT SEEN TO ADDRESS RIGHT HEEL DFU. PRESENTS A FULL THICKNESS LESION, OPENING IS 0.8 X 1.5 X 0.1 CM., NEARLY SMOOTH RED,GRANULATION TISSUE IN THE WOUND BED. PERIWOUND TISSUE IS ABNORMALLY THIN AND TRANSLUCEN, BUT INTACT. THERE IS A SMALL AMOUNT OF SANGUINOS DRAINAGE. CLEANSED WITH SOAP AND WATER, RINSED WITH WATER, THEN PATTED DRY. APPLIED AQUACEL AG UNDER ABD, THEN WRAPPED WITH KERLEX ROLL GAUZE UNDER ELIN WRAP. THIS WAS TOLERATED WELL BY THE PATIENT. APPLIED PRAFO BOOT AND PATIENT INSTRUCTED ON NO WEIGHT BEARING ONM THE HEEL WOUND AND PRAFO BOOT AT ALL TIMES. PATIENT STATED HE UNDERSTOOD.
--- NOTE | 2019-04-28 15:59 | NUR ---
ASSUMED CARE AT 0730. ALERT ORIENTED PLEASANT COOPERATIVE. 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 TRANSFERS WITH MIN ASSIST 1 WITH G BELT FROM W/C TO BED. WOUND NURSE CHANGED RT. HEEL DRESSING AT 1230. PICTURE TAKEN. WEARS PRAFO BOOT AT ALL TIMES TO OFFLOAD HEEL. DENIES PAIN JUST WANTED TO SLEEP THIS A.M. PARTICIPATING IN THERAPIES THROUGHOUT THE DAY. FEEDS SELF TAKES MEDS WITHOUT DIFFICULTY. HERE OFF AND ON TODAY. USES CALL LIGHT APPROPRIATELY FOR ASSIST. PROPELLS SELF IN W/C.
[2019-04-28 21:14] VITALS: BP 193/58
--- NOTE | 2019-04-28 23:40 | NUR ---
ASSUMED CARE AT 1930. PATIENT RESTING IN BED. C/O THAT WE ARE BOTHERING HIM TOO MUCH TAKING HIS VITAL SIGNS. STATES, "I DIDN'T GET ANY SLEEP LAST NIGHT AND NO ONE WOULD LET ME SLEEP TODAY." BP ELEVATED, THIS NURSE CHECKED MANUALLY, SEE INTERVENTIONS. GIVEN HS MEDS INCLUDING COREG EARLY. REFUSED TO HAVE HIS BP RECHECKED. REFUSED TO HAVE ASSIST WITH TURNING. DID TAKE HS MEDS. INSULIN NOT GIVEN PER REQUEST IN LIGHT OF POOR APPETITE AND REFUSING HS SNACK. DRESSING TO R HEEL C/D/I, OFFLOADING SPLINT IN PLACE. REFUSES ASSIST WITH TURNS DESPITE EDUCATION, BUT TURNS SELF. DOOR CLOSED, CALL LITE IN REACH. BED ALARM ON.
[2019-04-29 04:20] VITALS: BP 166/43
--- NOTE | 2019-04-29 04:58 | NUR ---
THIS NURSE MADE ROUNDS QUIETLY ENOUGH TO KEEP PATIENT SLEEPING FROM 1999 TO 419 WHEN LAB AWAKENED PATIENT. PATIENT HAS BEEN TURNING SELF. BP RECHECKED AFTER LAB WOKE PATIENT UP, 166/43 PULSE 64. DENIES PAIN. RETURNED TO SLEEP. HOURLY ROUNDS CONTINUE. BED ALARM ON. CALL LITE IN REACH. HAS NOT VOIDED THIS SHIFT.
[2019-04-29 05:05] LABS: ALBUMIN 3.1 g/dL (3.4-5.0); CALCIUM 9.4 mg/dL (8.5-10.1); PHOSPHORUS* 3.5 mg/dL (2.5-4.9); POTASSIUM 4.5 mmol/L (3.5-5.1)
[2019-04-29 05:11] LABS: CREATININE 6.2 mg/dL (0.6-1.3)
[2019-04-29 07:30] VITALS: BP 134/42
[2019-04-29 09:55] VITALS: BP 134/42
--- NOTE | 2019-04-29 17:52 | NUR ---
PATIENT ALERT AND ORIENTED X 4, TRANSFERS WITH EXTENSIVE ASSIST OF ONE. TO MAIN DINNING AREA FOR MEALS. CURRENTLY IN DIALYSIS. PATIENT BLOOD GLUCOSE 70 AT 1700, DENIES SIGNS OF SYMPTOMS. CONT. TO MONITOR.
[2019-04-29 20:00] VITALS: BP 132/52
--- NOTE | 2019-04-30 05:15 | NUR ---
ASSUMED PT CARE AT 2030 WHEN PT RETURNED FROM DIALYSIS. PT DENIED PAIN, JUST WANTED TO SLEEP. VITAL SIGNS WNL. DRESSING TO RIGHT HEEL C/D/I. PT REFUSES HELP WITH TURNS, BUT TURNS SELF. ONE SMALL VOID PER URINAL. NURSING CALLED TO ROOM AT 0345, DRESSING TO PT FISTUAL ON UPPER RIGHT ARM BLOODY. DRESSING REMOVED, AREA CLEANED AND DRESSING REAPPLIED. PT TOLERATED WELL. USES CALL LIGHT APPROPRIATELY. CALL LIGHT AND FREQUENTLY USED ITEMS WITHIN REACH. HOURLY ROUNDING IN PROGRESS, WILL CONTINUE TO MONITOR.
[2019-04-30 07:40] LABS: ALBUMIN 3.3 g/dL (3.4-5.0); CALCIUM 9.3 mg/dL (8.5-10.1); CREATININE 4.1 mg/dL (0.6-1.3); PHOSPHORUS* 2.6 mg/dL (2.5-4.9); POTASSIUM 4.2 mmol/L (3.5-5.1)
[2019-04-30 10:11] VITALS: BP 124/77
[2019-04-30 10:25] LABS: HEMATOCRIT 30.6 % (42.0-52.0); HEMOGLOBIN 10.4 gm/dL (14.0-18.0)
--- NOTE | 2019-04-30 14:42 | NUR ---
PATIENT'S FISTULA CONT. TO BLEED FROM DIALYSIS YESTERDAY. CALL PLACED WITH DR Dutton WHO ORDERED VASCULAR SURGEY TO SEE. SURG. DR CURIEL CAME IN AND PLACED A SUTURE. NO MORE BLEEDING. PATIENT HAS BEEN UP IN WHEELCHAIR. DENIES COMPLAINTS OF PAIN OR DISCOMFORT. NO SIGN OF DISTRESS. FAMILY HERE MOST OF THE DAY. CONT. WITH PLAN OF CARE AT THIS TIME.
[2019-04-30 20:00] VITALS: BP 178/48
--- NOTE | 2019-05-01 05:28 | NUR ---
ASSUMED PT CARE AT 1930. PT ALERT AND ORIENTED X4, FUSSY AND ARGUMENTATIVE ABOUT CARES. PT DENIES PAIN. DRESSING TO RIGHT HEEL C/D/I. DRESSING TO FISTULA ON RIGHT UPPER ARM C/D/I. PT REFUSES HELP WITH TURNS BUT TURNS SELF. PT SLEPT WELL OVERNIGHT. ONE SMALL VOID PER URINAL. CALL LIGHT AND FREQUENTLY USED ITEMS WITHIN REACH. BED ALARM ON FOR SAFETY. HOURLY ROUNDING CONTINUES.
[2019-05-01 08:26] VITALS: BP 169/55
--- NOTE | 2019-05-01 13:42 | NUR ---
ASSUMED CARE AT 0730. ALERT ORIENTED PLEASANT COOPERATIVE. HX OF OLD L BKKA AND HIP FX WHICH IS HEALED AND TERESITA AND HAS SKIN GRAFT RT. HEEL WEARS PRAFO BOOT CONTINUALLY TO OFFLOAD PRESSURE. TRANSFERS WITH SBA G BELT FROM BED TO W/C FOR BREAKFAST. FEEDS SELF TAKES MEDS WITHOUT DIFFICULTY. MORE AMIABLE TODAY WILLING TO GET UP FOR BREAKFAST WITHOUT ENCOURAGEMENT. DENIES PAIN. PARTICIPATING IN THERAPIES HERE WITH PT. WILL CHANGE RT. HEEL DRESSING AFTER THERAPIES COMPLETED.
[2019-05-01 20:12] VITALS: BP 170/48
[2019-05-02 04:33] LABS: HEMATOCRIT 25.9 % (42.0-52.0); HEMOGLOBIN 8.7 gm/dL (14.0-18.0)
[2019-05-02 04:44] LABS: CALCIUM 9.8 mg/dL (8.5-10.1); PHOSPHORUS* 3.6 mg/dL (2.5-4.9); POTASSIUM 4.9 mmol/L (3.5-5.1)
[2019-05-02 04:46] LABS: CREATININE 7.5 mg/dL (0.6-1.3)
--- NOTE | 2019-05-02 05:04 | NUR ---
ASSUMED PT CARE AT 1930. PT ALERT AND ORIENTED X4, PLEASANT AND COOPERATIVE WITH CARES. PT ALREADY IN BED AT SHIFT CHANGE. TAKES PILLS WHOLE WITH WATER WITHOUT DIFFICULTY. DRESSING TO RUE SHUNT C/D/I. DRESSING TO RT HEEL C/D/I. PT REFUSING TURNS BUT CAN TURN HIMSELF IN BED. PT SLEPT WELL OVERNIGHT. PT DID ALLOW LAB PERSONNEL TO DRAW LABS EARLY THIS AM. DENIES PAIN. CALL LIGHT WITHIN REACH. HOURLY ROUNDING IN PROGRESS, WILL CONTINUE TO MONITOR.
[2019-05-02 07:30] VITALS: BP 134/117
--- NOTE | 2019-05-02 14:17 | NUR ---
ASSUMED CARE AT 0730. ALERT ORIENTED PLEASANT COOPERATIVE. HX OF OLD BKA L L HIP FX INCISION HEALED TERESITA. WEARS PRAFO BOOT RT. FOOT TO OFFLOAD PRESSURE TO RT. HEEL. DRESSING C/D/I. TRANSFERS WITH SBA G BELT FROM BED TO W/C AND TO BED. DENIES PAIN OR CONCERNS. FEEDS SELF AND TAKES MEDS WITHOUT DIFFICULTY. HERE VISITING. PT. PARTICIPATING IN THERAPIES THROUGHOUT THE DAY. TO DIALYSIS PER BED AT 1400.
[2019-05-02 18:00] VITALS: BP 115/58
--- NOTE | 2019-05-02 18:17 | NUR ---
RETURNED TO ROOM FROM DIALYSIS PER BED. REPORT FROM NURSE 2 LITERS FLUID REMOVED DURING DIALYSIS. VS WERE 115/58 62 16 97.8.
--- NOTE | 2019-05-02 21:15 | NUR ---
RESTING QUIETLY IN BED. DENIES DISCOMFORT. HAS SOCK AND BOOT OVER RIGHT FOOT. TURNS SELF IN BED. TOOK MEDICATIONS WHOLE WITH WATER.
--- NOTE | 2019-05-03 05:59 | NUR ---
RESTED QUIETLY. NO COMPLAINTS VOICED. TURNS SELF IN BED. HAS SOCK AND PRAFO BOOT ON RIGHT FOOT. HOURLY ROUNDING IN PROGRESS.
[2019-05-03 08:35] VITALS: BP 186/44
--- NOTE | 2019-05-03 14:39 | NUR ---
SW and Dr Foy met with pt and pt to review team conference summary and plan for pt to remain on rehab unit for one more week with team to reassess pt length of stay during team conference on next Thursday 05/10. Pt was very disappointed but pt was encouraging for pt to continue to work hard on rehab. Pt agreeable with plan; SW to continue to follow to assist with safe dc planning.
--- NOTE | 2019-05-03 18:16 | NUR ---
PATIENT ALERT AND ORIENTED X 4, PROPELLS SELF TO/FROM MAIN DINING AREA. DENIES COMPLAINTS OF PAIN OR DISCOMFORT. NO SIGN OF DISTRESS. CONT. WITH PLAN OF CARE.
[2019-05-03 19:49] VITALS: BP 198/59
--- NOTE | 2019-05-04 04:23 | NUR ---
RESTED WELL THROUGHOUT HOURLY ROUNDS NO CHANGES IN PT ASSESSMENT NO CONCERNS VOICED NO COMPLAONITS OF PAIN, WILL CONITNUE WITH CURRENT PLAN OF CARE.
[2019-05-04 07:50] VITALS: BP 184/43
[2019-05-04 10:50] LABS: ABSOLUTE EOSINOPHILS 0.3 thou/uL (0.0-0.7); ABSOLUTE LYMPHOCYTES 0.9 thou/uL (0.8-5.3); ABSOLUTE MONOCYTES 0.5 thou/uL (0.0-1.2); ABSOLUTE NEUTROPHILS 4.4 thou/uL (1.6-8.1); BASOPHILS 0.7 %; EOSINOPHILS 5.3 %; HEMATOCRIT 30.1 % (42.0-52.0); HEMOGLOBIN 10.3 gm/dL (14.0-18.0); LYMPHOCYTES 15.1 %; MCH 33.4 pg (26.0-34.0); MCHC 34.4 g/dL (28.0-37.0); MCV 97.3 fL (80.0-100.0); MONOCYTES 7.9 %; MPV 7.3 fl. (7.2-11.1); NUCLEATED RBCS 0 /100WBC; PLATELET COUNT* 290 thou/uL (150-400); RBC 3.09 mil/uL (4.50-6.00); RDW-CV 15.6 % (10.5-14.5); WBC 6.3 thou/uL (4.0-11.0)
[2019-05-04 10:56] LABS: CALCIUM 10.5 mg/dL (8.5-10.1); CREATININE 7.2 mg/dL (0.6-1.3); POTASSIUM 4.6 mmol/L (3.5-5.1)
[2019-05-04 11:46] LABS: % SATURATION 37 % (20-39); IRON 78 ug/dL (50-175)
--- NOTE | 2019-05-04 16:17 | NUR ---
PATIENT WORKED WITH THERAPY TODAY ORDERED. PATIENT FUSSY WITH STAFF THIS AM REGARDING WOUND CARE AND BATHING. RIGHT HEEL DRESSING CHANGED ORDERED. PATIENT IN DIALYSIS THIS EVENING. NO COMPLAINTS OF PAIN. XRAY ORDERED OF LEFT HIP PER DR. NGUYEN.
[2019-05-04 18:13] VITALS: BP 156/68
--- NOTE | 2019-05-04 19:25 | NUR ---
AWAKENED FROM HS REASSESSMENT AND MEDICATION PASS. PATIENT VERY ANGRY AND STATES THIS IS THE SECOND TIME HE HAS BEEN AWAKENED SINCE HE FELL ASLEEP THIS EVENING. EXPLAINED THAT CAME TO HIS ROOM FIRST TRYING TO GET TO HIM BEFORE HE WENT TO SLEEP. PATIENT THE SAT UP AND TURNED THE TV ON. CALMED DOWN SOME BUT SAID NOT TO COME BACK TO TAKE HIS ACCUCHECK.
[2019-05-04 19:55] VITALS: BP 172/42
--- NOTE | 2019-05-05 05:22 | NUR ---
RESTED QUIETLY. TURNS SELF IN BED. HOURLY ROUNDING IN PROGRESS.
[2019-05-05 08:00] VITALS: BP 146/53
--- NOTE | 2019-05-05 16:05 | NUR ---
I have reviewed the documentation by ADRIAN STYLES from TODAY to 05/05/19 and I concur with it. NARAYAN TAYLOR
--- NOTE | 2019-05-05 17:46 | NUR ---
PATIENT ALERT AND ORIENTED X 4, MOOD IS GOOD. SBA WITH TRANSFERS. DENIES COMPLAINTS OF PAIN. NO SIGN OF DISTRESS.
[2019-05-05 19:30] VITALS: BP 155/45
--- NOTE | 2019-05-05 19:40 | NUR ---
SITTING UP IN BED EATING HOMEMADE BROWNIES BROUGHT IN BY HIS NIECE WHO CAME TO VISIT. PATIENT VERY HATEFUL AND SARCASTIC TO STAFF. DENIES DISCOMFORT.
--- NOTE | 2019-05-06 05:41 | NUR ---
RACHELLE WILLETT. NO COMPLAINTS VOICED. HOURLY ROUNDING IN PROGRESS.
[2019-05-06 08:00] VITALS: BP 153/50
--- NOTE | 2019-05-06 14:40 | NUR ---
ASSUMED CARE AT 0730. ALERT ORIENTED PLEASANT COOPERATIVE. HX OF L HIP FX AND OLD L BKA. TRANSFERS WITH SBA G BELT FROM BED TO W/C. PROPELLS SELF IN W/C INDEPENDENTLY. DENIES PAIN OR CONCERNS. PARTICIPATING IN THERAPIES. HERE THIS A.M. APPETITE FAIR ON RENAL DIET TAKES MEDS WITHOUT DIFFICULTY.
[2019-05-06 19:30] VITALS: BP 182/53
--- NOTE | 2019-05-06 19:30 | NUR ---
JUST RETURNED FROM DIALYSIS. DENIES DISCOMFORT. DOESN'T WANT SUPER TRAY. OFFER FOR A BOX LUNCH DECLINED. PRAFO BOOT REMOVED. RIGHT FOOT ELEVATED ON TWO PILLOWS.
--- NOTE | 2019-05-07 05:25 | NUR ---
RESTED QUIETLY. NO COMPLAINTS VOICED. HOURLY ROUNDING IN PROGRESS.
[2019-05-07 08:24] VITALS: BP 155/38
--- NOTE | 2019-05-07 15:16 | NUR ---
ASSUMED CARE AT 0730. ALERT ORIENTED PLEASANT COOPERATIVE. HX OF L HIP FX LBKA OLD. L HIP INCISION HEALED TERESITA. TRANSFERS WITH SBA G BELT FROM BED TO W/C AND BACK TO BED. USES CALL LIGHT APPROPRIATELY FOR ASSIST. WEARS PRAFO BOOT WHEN OOB FOREFOOT TO BEAR WEIGHT 50% . DRESSING CHANGED TO RT. HEEL WHICH HAD SKIN GRAFT PICTURE TAKEN AND IN CHART. PT. HAD ONE SESSION OF PAmandaT. THIS A.M. HERE VISITING. DENIES PAIN OR CONCERNS.
[2019-05-07 21:15] VITALS: BP 187/51
--- NOTE | 2019-05-08 01:44 | NUR ---
ASSUMED CARE @ 1924-05/07-WEDNESDAY.APPEARS SLEEPING IN BED W/ HOB UP.WANTS SIDERAILS X2 UP.BED ALARM PUT ON @ 1924.STUMP BMET IN PLACE LEFT STUMP. PER PATIENT-WEARS PRAFO BOOT RIGHT FOOT EVEN @ NIGHT.LE'S UP ON 2 PILLOWS. AWAKE ALREADY @ 2114.AV FISTULA RIGHT UPPER ARM W/ GOOD BRUIT & GOOD THRILL. WANTS LIGHTS OFF @ NIGHT & DOOR CLOSED.URINAL W/IN REACH.TURNS SELF @ NIGHT.ON HOURLY ROUNDS.
[2019-05-08 02:40] VITALS: BP 137/42
--- NOTE | 2019-05-08 05:07 | NUR ---
SLEEPING SINCE 1924 & SLEEPING GOOD ALL NIGHT.AWAKE @ 2199-WATCHING TV & @ 020- FOR BRP PER W/C.SBA ONLY TRANSFERS & TOILETING.PRAFO BOOT OFF @ 229. MOISTURE BARRIER CREAM APPLIED TO DRY,HEALING ABRASION LEFT BUTTOCK @ 229.TEMP @ .3 ORAL.TEMP.RE-CHECKED @ 98.6 ORAL.BP @ /51. GETS COREG 25 MG @ HS.BP RE-CHECKED @ /42-64.HAD LARGE BM & VOIDING @ 0200.REFUSED HS SNACK.
[2019-05-08 09:08] VITALS: BP 153/75
[2019-05-08] MEDS ORDERED: HUMALOG100 UNIT/1 SUBQ (11:13)
[2019-05-08 11:32] VITALS: BP 153/75
[2019-05-08 12:24] VITALS: BP 153/75
--- NOTE | 2019-05-08 12:28 | NUR ---
Pt to dc home with today; plan changed after pt and Dr Foy met this morning and team agreed with pt ready to dc home with HH services to follow. Pt active with [facility]; SHELBI faxed resumption orders and med list and spoke with Regla who is aware and accepting of referral. Pt to provide pt ride home; pt has all needed DME at home. No other dc needs expressed.
[2019-05-08 13:30] VITALS: BP 153/75
--- NOTE | 2019-05-08 15:03 | NUR ---
ASSUMED CARE AT 0730. ALERT ORIENTED PLEASANT COOPERATIVE. HX OF L HIP FX AND OLD L BKA. ALSO HAS SKIN GRAFT RT. HEEL WHICH IS HEALING WELL DRESSING C/D/I WEARS PRAFO BOOT FOR TRANSFERS WEIGHT BEARING LIMITED TO FORE FOOT AREA. DENIES PAIN OR REQUESTS. TRANSFERS WITH SBA G BELT FROM BED TO W/C. HERE THIS A.M. PT. TO BE DISCHARGED TO HOME WITH HOME HEALTH DISCHARGE INSTRUCTIONS WERE GIVEN TO PT. VERBALIZED UNDERSTANDING OF THEM ALLOWED TIME FOR QUESTIONS. HAS PARTICIPATED IN THERAPIES THIS A.M. DISCHARGED TO HOME WITH PER CAR WITH BELONGINGS AT 1330 PER W/C.
--- NOTE | 2019-05-08 17:54 | NUR ---
I have reviewed the documentation by ADRIAN STYLES from TODAY to 05/08/19 and I concur with it. NARAYAN TAYLOR
== END 2019-05-08 13:30 | disposition home health service (06) | DRG 535 ==
LOC: M.REH 14:32
PROVIDERS: Internal Medicine Nephrology; ADMIT Physical Medicine & Rehabilitation
PROC: 5A1D70Z Performance of Urinary Filtration, Intermittent, Less than 6 Hours Per Day (ICD-10-PCS; principal; 2019-05-02)
PROC: 5A1D70Z Performance of Urinary Filtration, Intermittent, Less than 6 Hours Per Day (ICD-10-PCS; 2019-05-04)
PROC: 5A1D70Z Performance of Urinary Filtration, Intermittent, Less than 6 Hours Per Day (ICD-10-PCS; 2019-05-06)
DX: S72.002A Fracture of unspecified part of neck of left femur, initial encounter for closed fracture (principal); N18.6 End stage renal disease; I12.0 Hypertensive chronic kidney disease with stage 5 chronic kidney disease or end stage renal disease; E87.1 Hypo-osmolality and hyponatremia; T82.838A Hemorrhage due to vascular prosthetic devices, implants and grafts, initial encounter; E44.1 Mild protein-calorie malnutrition; N25.81 Secondary hyperparathyroidism of renal origin; D68.59 Other primary thrombophilia; H54.7 Unspecified visual loss; E11.22 Type 2 diabetes mellitus with diabetic chronic kidney disease; E78.5 Hyperlipidemia, unspecified; D64.9 Anemia, unspecified; Y83.8 Other surgical procedures as the cause of abnormal reaction of the patient, or of later complication, without mention of misadventure at the time of the procedure; E83.39 Other disorders of phosphorus metabolism; V87.8XXA Person injured in other specified noncollision transport accidents involving motor vehicle (traffic), initial encounter; Y93.55 Activity, bike riding; Y92.89 Other specified places as the place of occurrence of the external cause; Y99.8 Other external cause status; Z89.512 Acquired absence of left leg below knee; Z98.42 Cataract extraction status, left eye; Z98.41 Cataract extraction status, right eye; Z99.2 Dependence on renal dialysis; Z79.899 Other long term (current) drug therapy; Z83.3 Family history of diabetes mellitus; Z86.73 Personal history of transient ischemic attack (TIA), and cerebral infarction without residual deficits; Z68.25 Body mass index [BMI] 25.0-25.9, adult; Z86.718 Personal history of other venous thrombosis and embolism

== ENCOUNTER → 2019-06-07 | Outpatient (CLI) | payer OTHER | LOC: M.WC 05:27 | DX: E11.621 Type 2 diabetes mellitus with foot ulcer (principal); I70.234 Atherosclerosis of native arteries of right leg with ulceration of heel and midfoot; L97.418 Non-pressure chronic ulcer of right heel and midfoot with other specified severity; E11.22 Type 2 diabetes mellitus with diabetic chronic kidney disease; N18.6 End stage renal disease; I50.9 Heart failure, unspecified; Z95.820 Peripheral vascular angioplasty status with implants and grafts; Z99.2 Dependence on renal dialysis; Z89.512 Acquired absence of left leg below knee; Z87.891 Personal history of nicotine dependence ==

== ENCOUNTER → 2020-12-18 | Outpatient (CLI) | payer OTHER | LOC: M.WC 14:00 | PROVIDERS: ATTEND Podiatrist Foot & Ankle Surgery | DX: E11.621 Type 2 diabetes mellitus with foot ulcer (principal); I70.234 Atherosclerosis of native arteries of right leg with ulceration of heel and midfoot; L97.412 Non-pressure chronic ulcer of right heel and midfoot with fat layer exposed; L84 Corns and callosities; E11.22 Type 2 diabetes mellitus with diabetic chronic kidney disease; N18.6 End stage renal disease; E11.51 Type 2 diabetes mellitus with diabetic peripheral angiopathy without gangrene; E11.42 Type 2 diabetes mellitus with diabetic polyneuropathy; I50.9 Heart failure, unspecified; F17.200 Nicotine dependence, unspecified, uncomplicated; Z99.2 Dependence on renal dialysis; Z89.512 Acquired absence of left leg below knee ==

== ENCOUNTER 2020-12-22 14:00 | Emergency (ER) | payer OTHER ==
[~2020-12-22] VITALS: Ht 170.2 cm; Wt 72.1 kg
[2020-12-22 14:10] VITALS: BP 134/73
[2020-12-22] MEDS ORDERED: DOXYCYCLINE 10100 M2 PO (14:16)
[2020-12-22] MEDS ORDERED: NOVOLOG100 UNIT/M SUBQ (14:18)
[2020-12-22 15:12] LABS: HEMOGLOBIN 11.6 gm/dL (14.0-18.0); MCH 31.5 pg (26.0-34.0); MCHC 32.3 g/dL (28.0-37.0); MCV 97.6 fL (80.0-100.0); MPV 8.5 fl. (7.2-11.1); NUCLEATED RBCS 0 /100WBC; PLATELET COUNT* 246 thou/uL (150-400); RBC 3.69 mil/uL (4.50-6.00); RDW-CV 15.9 % (10.5-14.5); WBC 13.5 thou/uL (4.0-11.0)
[2020-12-22 15:24] LABS: ANION GAP 14 mmol/L (7-16); BUN 39 mg/dL (7-18); CALCIUM 10.3 mg/dL (8.5-10.1); CHLORIDE 97 mmol/L (98-107); CO2 25 mmol/L (21-32); CREATININE 6.5 mg/dL (0.6-1.3); GLUCOSE 199 mg/dL (70-99); POTASSIUM 5.9 mmol/L (3.5-5.1); SODIUM 136 mmol/L (136-145)
[2020-12-22 15:25] LABS: APTT 27.2 Seconds (25.0-31.3); INR 1.4; PROTIME 14.3 Seconds (9.20-11.50)
[2020-12-22 15:39] LABS: ALBUMIN 3.8 g/dL (3.4-5.0); ALKALINE PHOSPHATASE 57 U/L (46-116); NT-PRO BRAIN NAT PEPTIDE > 35000 pg/mL (<300); SGOT 1601 U/L (15-37); SGPT 653 U/L (30-65); TOTAL BILIRUBIN 0.6 mg/dL (<0.1-1.0); TOTAL PROTEIN 6.9 g/dL (6.4-8.2)
[2020-12-22 16:10] LABS: ABSOLUTE LYMPHOCYTES 1.2 thou/uL (0.8-5.3); ABSOLUTE MONOCYTES 0.9 thou/uL (0.0-1.2); ABSOLUTE NEUTROPHILS 11.3 thou/uL (1.6-8.1); PLATELET ESTIMATE ADEQUATE
[2020-12-22 16:11] LABS: ANISOCYTOSIS 1+
[2020-12-22 18:00] VITALS: BP 149/88
--- NOTE | 2020-12-22 18:34 | NUR ---
PT STABILIZED ENOUGH TO STOP THE LEVO. POTASSIUM WAS CRITICALLY HIGH AT 7.1, DR CANNON GAVE ORDERS FOR 10 UNITS OF REGULAR INSULIN AND AN AMP OF D5. RECHECKED ONE HOUR LATER AND POTASSIUM IS NOW 6.8. DR CANNON PAGED, WAITING FOR RETURN CALL OR ORDERS.
--- NOTE | 2020-12-23 13:04 | NUR ---
PT RELEASED BY [facility], CONTACTED [facility] IN [place] PER REQUEST. [place] [facility] [place]
--- NOTE | 2020-12-23 13:22 | NUR ---
ORDERS RECEIVED. PATIENT 12/22/20. RISA FORTUNE, MPT
--- NOTE | 2020-12-23 17:08 | EKG ---
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: DORCAS : [id number] Requested By: Ryan Ca Order Number: [id number] MD: Kit Lange Measurements Intervals [place] Rate: 87 P: -45 IA: 231 QRS: -73 QRSD: 151 T: 85 QT: 418 QTc: 503 Interpretive Statements Sinus or ectopic atrial rhythm Prolonged IA interval Right bundle branch block Anterolateral infarct, acute (LAD) Baseline wander in lead(s) V3 Compared to ECG 04/17/2019 14:10:10 Ectopic atrial rhythm now present Myocardial infarct finding now present Sinus rate has increase Left ventricular hypertrophy no longer present Early repolarization no longer present Electronically Signed On 12-23-2020 17:08:45 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
== END 2020-12-22 18:28 ==
LOC: M.ERS 14:00 → M.TBA-ER 17:27
PROVIDERS: Emergency Medicine Emergency Medical Services
DX: I63.9 Cerebral infarction, unspecified (principal); I21.3 ST elevation (STEMI) myocardial infarction of unspecified site; E87.5 Hyperkalemia; Z20.822 Contact with and (suspected) exposure to COVID-19; I13.11 Hypertensive heart and chronic kidney disease without heart failure, with stage 5 chronic kidney disease, or end stage renal disease; E11.22 Type 2 diabetes mellitus with diabetic chronic kidney disease; N18.6 End stage renal disease; E78.5 Hyperlipidemia, unspecified; Z99.2 Dependence on renal dialysis; Z86.73 Personal history of transient ischemic attack (TIA), and cerebral infarction without residual deficits; Z87.891 Personal history of nicotine dependence; Z79.4 Long term (current) use of insulin